=== PATIENT | male | born 1940 | race Caucasian/White ===

== ENCOUNTER → 2017-01-30 | Day surgery (SDC) | payer OTHER ==
[2017-01-30 10:17] VITALS: BMI 27.2
[2017-01-30 10:32] VITALS: BP 130/67; PULSE 80; TEMP 98.1
[2017-01-30 10:38] LABS: INR 1.38 (0.82-1.09); PROTHROMBIN TIME (PATIENT) 15.3 SEC (9.98-11.88)
== END | disposition home or self-care (01) ==
LOC: JASU-ENDO 09:32
PROVIDERS: ATTEND Internal Medicine Gastroenterology
PROC: 0FJB8ZZ Inspection of Hepatobiliary Duct, Via Natural or Artificial Opening Endoscopic (ICD-10-PCS; principal; 2017-01-30)
DX: Z53.8 Procedure and treatment not carried out for other reasons (principal)
CPT/HCPCS: 36415; 85610

== ENCOUNTER 2017-02-13 08:33 | Day surgery (SDC) | payer OTHER ==
[2017-02-12 13:20] VITALS: BMI 27.2
[2017-02-13] MEDS ORDERED: INDOMETHACIN 50 MG RECTAL SUPPOSITORY PR ONE ×2 (09:41→09:43)
[2017-02-13] MEDS ORDERED: IOHEXOL 300 MG/ML INFUS..BTL IV ONE (09:43)
[2017-02-13 10:26] VITALS: TEMP 98.7
[2017-02-13 15:19] VITALS: BP 110/60; PULSE 63
== END 2017-02-13 15:19 | disposition home or self-care (01) ==
LOC: JASU-ENDO 08:33
PROVIDERS: ATTEND Internal Medicine Gastroenterology
PROC: 0F798ZZ Dilation of Common Bile Duct, Via Natural or Artificial Opening Endoscopic (ICD-10-PCS; 2017-02-13)
PROC: 0FC98ZZ Extirpation of Matter from Common Bile Duct, Via Natural or Artificial Opening Endoscopic (ICD-10-PCS; principal; 2017-02-13 09:30)
DX: K80.50 Calculus of bile duct without cholangitis or cholecystitis without obstruction (principal)
CPT/HCPCS: 36415; 74330-TC; 82150

== ENCOUNTER 2017-03-16 05:09 | Inpatient (IN) | payer OTHER ==
--- NOTE | 2017-03-16 09:15 | HP ---
History & Physical Update - History History: No Change - Physical Physical: No Change - Assessment Assessment: No Change - Plan Plan: No Change
[2017-03-16 09:19] LABS: INR 0.96 (0.82-1.09); PROTHROMBIN TIME (PATIENT) 10.9 SEC (9.98-11.88)
[2017-03-16] MEDS ORDERED: ROCURONIUM BROMIDE 50 MG/5 ML VIAL ONE (09:23)
[2017-03-16] MEDS ORDERED: PROPOFOL 20 ML ONE (09:23)
[2017-03-16] MEDS ORDERED: MIDAZOLAM HCL 2 MG/2 ML SINGLE DOSE VIAL ONE (09:23)
[2017-03-16] MEDS ORDERED: LIDOCAINE HCL/PF 2% SDV 5ML VIAL ONE (09:35)
[2017-03-16] MEDS ORDERED: DEXAMETHASONE SOD PHOSPHATE 4 MG/1 ML VIAL ONE (09:45)
[2017-03-16] MEDS ORDERED: ONDANSETRON 4 MG/2 ML VIAL ONE (09:45)
[2017-03-16] MEDS ORDERED: BUPIVACAINE HCL/PF 0.5% (5MG/ML) 10 ML VIAL ONE (09:48)
[2017-03-16] MEDS ORDERED: ceFAZolin SODIUM 1 GM VIAL IVPB ONE (09:57)
[2017-03-16] MEDS ORDERED: GLYCOPYRROLATE 0.2 MG/1 ML VIAL ONE ×2 (10:09→10:20)
[2017-03-16] MEDS ORDERED: ceFAZolin SODIUM 1 GM VIAL ONE (10:09)
[2017-03-16] MEDS ORDERED: DESFLURANE GAS 240 ML BOTTLE IH ONE (10:11)
[2017-03-16] MEDS ORDERED: BUPIVACAINE HCL/PF 0.5% (5MG/ML) 10 ML VIAL IJ ONE (10:20)
[2017-03-16] MEDS ORDERED: METOPROLOL TARTRATE 5 MG/5 ML VIAL ONE (10:29)
[2017-03-16] MEDS: LABETALOL HCL 5 MG/1 ML (100MG/20 ML VIAL) IVPUSH ONE ×2 (10:35→17:01)
[2017-03-16] MEDS ORDERED: ONDANSETRON 4 MG/2 ML VIAL IVPUSH PRN (10:39)
[2017-03-16] MEDS ORDERED: PROMETHAZINE HCL 25 MG/1 ML VIAL IVPUSH PRN (10:39)
--- NOTE | 2017-03-16 10:43 | SURG ---
Surgery Production Line Note Production Line: Tootie Roblero PA-C Date of Service: 03/16/17 Diagnosis: cholelithiasis Procedure: Laprascope- procedure aborted I was present for the entirety of the operative procedure. For further detail, please refer to operative report. Visit type - Case Type Case Type: Scheduled Admission - Emergency Emergency Visit: No - New patient This patient is new to me today: Yes Date on this admission: 03/16/17
--- NOTE | 2017-03-16 11:14 | OP ---
Operative Note - Note: Operative Date: 03/16/17 Pre-Operative Diagnosis: Cholelithiasis, s/p ERCP extraction of CBD stone, atrial fibrillation . Operation: Laparoscopy , diagnostic. Findings: Stiff liver , extensive adhesions of gallbladder covering all the way to the fundus, with omental and peritoneal adhesions. During mobilisation of the fundus, the anesthesiologist noted the patient to be bradycardic to heart rate of 28, to 32, with a blood pressure of 85. Patient remained with bradycardia for a while and the procedure was aborted and wounds closed. Post-Operative Diagnosis: Other (Bradycardia, hypotension , stiff liver , gallvbladder with omental and peritoneal adhesions.) Surgeon: Hanna Del Real Crime Prevention Worker: Tootie Roblero Anesthesiologist/STRUCTURAL WELDER: Bret Acevedo Anesthesia: General Operative Report Dictated: Yes
--- NOTE | 2017-03-16 11:19 | HP ---
CHIEF COMPLAINT: bracycardic during surgery PCP: Dr. Alejo HISTORY OF PRESENT ILLNESS: This is a 77 year old male with a past medical history of atrial fibrillation on coumadin, hepatitis C, untreated, that was here for laproscopic cholecystectomy status post ESRP with choledolithiasis. Pre procedure BP 141/89 ; HR 62. after intubation patient BP systolic rised to 150s, he was then given labetolol 5mg IVP. After his HR dropped to 28. The procedure was aborted and he was extubated. In the recovery room BP rised again to systolic in 180s, he was given labetolol 10mg IVP. BP stabilized; HR 60s. Patient denies chest pain, dyspnea, n,v, diaphoresis, leg swelling Patient denies pre op fever, chills, n, v, changes in bowel or bladder. Recent Travel: no PAST MEDICAL HISTORY: Hepatitis C, atrial fibrillation, hypertension PAST SURGICAL HISTORY: Social History: Smoking:no Alcohol:no Drugs: no Family History: Allergies No Known Drug Allergies Allergy (Verified 03/16/17 08:28) HOME MEDICATIONS: Home Medications Medication Instructions Recorded Metoprolol Tartrate [Lopressor] 50 mg PO DAILY 08/28/12 Aspirin [Ecotrin] 81 mg PO DAILY 01/30/17 Metformin HCl 500 mg PO BID 01/30/17 Warfarin Na [Coumadin] 7.5 mg PO DAILY 01/30/17 Losartan Potassium [Cozaar] 100 mg PO DAILY 02/12/17 Albuterol Sulfate Inhaler - 1 - 2 inh PO QID PRN 03/08/17 [Ventolin Hfa Inhaler -] Albuterol Sulfate [Proair 90 mcg IH DAILY PRN 03/08/17 Respiclick] REVIEW OF SYSTEMS CONSTITUTIONAL: Absent: fever, chills, diaphoresis, generalized weakness, malaise, loss of appetite, weight change HEENT: Absent: rhinorrhea, nasal congestion, throat pain, throat swelling, difficulty swallowing, mouth swelling, ear pain, eye pain, visual changes CARDIOVASCULAR: Absent: chest pain, syncope, palpitations, irregular heart rate, lightheadedness , peripheral edema RESPIRATORY: Absent: cough, shortness of breath, dyspnea with exertion, orthopnea, wheezing, stridor, hemoptysis GASTROINTESTINAL: Absent: abdominal pain, abdominal distension, nausea, vomiting, diarrhea, constipation, melena, hematochezia GENITOURINARY: Absent: dysuria, frequency, urgency, hesitancy, hematuria, flank pain, genital pain MUSCULOSKELETAL: Absent: myalgia, arthralgia, joint swelling, back pain, neck pain SKIN: Absent: rash, itching, pallor HEMATOLOGIC/IMMUNOLOGIC: Absent: easy bleeding, easy bruising, lymphadenopathy, frequent infections ENDOCRINE: Absent: unexplained weight gain, unexplained weight loss, heat intolerance, cold intolerance NEUROLOGIC: Absent: headache, focal weakness or paresthesias, dizziness, unsteady gait, seizure, mental status changes, bladder or bowel incontinence PSYCHIATRIC: Absent: anxiety, depression, suicidal or homicidal ideation, hallucinations. PHYSICAL EXAMINATION Vital Signs - 24 hr 03/16/17 08:22 Temperature 97.4 F L Pulse Rate 62 Respiratory 20 Rate Blood Pressure 141/89 O2 Sat by Pulse 100 Oximetry (%) GENERAL: Awake, alert, and fully oriented, in no acute distress, seen in PACU HEAD: Normal with no signs of trauma. EYES: Pupils equal, round and reactive to light, extraocular movements intact, sclera anicteric, conjunctiva clear. No lid lag. EARS, NOSE, THROAT: Ears normal, nares patent, oropharynx clear without exudates. Moist mucous membranes. NECK: Normal range of motion, supple without lymphadenopathy, JVD, or masses. LUNGS: Breath sounds equal, clear to auscultation bilaterally. No wheezes, and no crackles. No accessory muscle use. HEART: Regular rate and rhythm, normal S1 and S2 without murmur, rub or gallop. ABDOMEN: Soft, nontender, not distended, normoactive bowel sounds, no guarding, no rebound, no masses. No hepatomegaly or splenomegaly. with areas of trocar placed; clean dry intact , no erythema, swelling MUSCULOSKELETAL: Normal range of motion at all joints. No bony deformities or tenderness. No CVA tenderness. UPPER EXTREMITIES: 2+ pulses, warm, well-perfused. No cyanosis. No clubbing. No peripheral edema. LOWER EXTREMITIES: 2+ pulses, warm, well-perfused. No calf tenderness. No peripheral edema. NEUROLOGICAL: Cranial nerves II-XII intact. Normal speech. Normal gait. PSYCHIATRIC: Cooperative. Good eye contact. Appropriate mood and affect. SKIN: Warm, dry, normal turgor, no rashes or lesions noted, normal capillary refill. Laboratory Results - last 24 hr 03/16/17 03/16/17 08:05 08:13 PT with INR 10.90 INR 0.96 D POC Glucometer 105 Current Medications Generic Name Dose Route Start Last Admin Trade Name Molina PRN Reason Stop Dose Admin Fentanyl 50 mcg 03/16/17 10:39 Sublimaze Injection - IVPUSH 03/19/17 10:40 [id number] PRN PAIN Lactated Ringer's 1,000 mls @ 125 mls/hr 03/16/17 10:45 Lactated Ringers Solution IV ASDIR VALERIANO Ondansetron HCl 4 mg 03/16/17 10:39 Zofran Injection IVPUSH 03/16/17 16:40 Q6H PRN NAUSEA AND/OR VOMITING Promethazine HCl 12.5 mg 03/16/17 10:39 Phenergan Injection - IVPUSH 03/16/17 16:40 Q6H PRN NAUSEA-FOR RESCUE AFTER 15 MIN ASSESSMENT/PLAN: This is a 77 year old male with a past medical history of hypertension, atrial fibrillation, hepatitis C, liver cirrohsis, while getting lap mark, patient became severly bradycardic. #bradycardia secondary to labetalol -inpatient monitor in telemetry -currently normotensive; rate controlled -f/u labs -f/u cardiac profile -cardiac consult -hold bp meds if HR>90 and systolic BP <90 FEN: lactated ringer cardiac diet VTE prophylaxis: sq case discussed with attending full Hand P to follow
[2017-03-16 11:36] LABS: BASOPHIL 1.3 % (0-2.0); MCH 30.8 pg (25.7-33.7); MCHC 32.5 g/dl (32.0-35.9); MEAN CELL VOLUME 94.7 fl (80-96); NEUTROPHILS 72.9 % (42.8-82.8); PLATELET COUNT 139 K/MM3 (134-434); RDW 14.3 % (11.9-15.9); WHITE BLOOD COUNT 5.5 K/mm3 (4.0-10.0)
[2017-03-16 11:44] LABS: TROPONIN I 0.02 ng/ml (0.00-0.05)
--- NOTE | 2017-03-16 12:34 | OP ---
DATE OF OPERATION: 03/16/2017 PREOPERATIVE DIAGNOSIS: Cholelithiasis, choledocholithiasis, status post endoscopic retrograde cholangiopancreatography extraction of common bile duct stone, hepatitis C, and atrial fibrillation. POSTOPERATIVE DIAGNOSIS: Cholelithiasis, choledocholithiasis, status post endoscopic retrograde cholangiopancreatography extraction of common bile duct stone, hepatitis C, and atrial fibrillation, with bradycardia and hypertension intraoperatively. SURGEON: Yariel Del Real MD STOCK BUYER: CAMI Johns ANESTHESIA: General anesthesia. ANESTHESIOLOGIST: Bret Acevedo MD OPERATIVE DESCRIPTION: This 77-year-old man, who has a history of atrial fibrillation, diabetic, and hypertension, and has been on Coumadin, metoprolol, aspirin, metformin, and Cozaar, was brought in electively for laparoscopic cholecystectomy. Consent was obtained. Risks, benefits, and complications were discussed with the patient. Patient was brought to the operating room. General anesthesia was administered. The abdomen was painted and draped. He was given a gram of Ancef. An incision was made in the infraumbilical portion of the umbilicus, which was carried down through the skin and subcutaneous tissue and the linea alba vertically in the midline. The peritoneum was incised, and the 10-12-cm laparoscopic trocar of the Darren type was introduced into the abdominal cavity. The abdomen was inflated with carbon dioxide at 6 L per minute with a maximum intraabdominal pressure of 15 mmHg. A 5-mm laparoscopic trocar was inserted into the abdominal cavity, and the abdominal cavity was inspected. Under direct vision, two 5-mm trocars were inserted in the right upper quadrant of the abdomen, one along the midclavicular line, another around the anterior axillary line. These were noted entering the abdominal cavity under direct vision with the camera. A third trocar, another 5-mm, was inserted in the midline of the subxiphoid area. This was noted entering the abdominal cavity to the right of the falciform ligament. The gallbladder was completely covered with omentum and peritoneal adhesions. With sharp and blunt dissection, rylie attempt was made, to visualize the fundus of the gallbladder. While mobilizing, the liver was found to be very stiff, and firm, suggestive of probable cirrhosis of the liver. Carefully, the peritoneal adhesions around the tip of the gallbladder at the fundus were freed, and attempt was made to grasp the fundus with the grasper. During this procedure, patient became hypotensive, with blood pressure of 80 systolic,and bradycardic, and anesthesiologist suggested, that we stop the procedure. Theprocedure was aborted. The abdomen was deflated. However, the patient remained bradycardic and hypotensive, and it was decided to close the abdominal wounds and not continue with the planned procedure. The linear alba was approximated with interrupted [id number] 2-0 Vicryl sutures. The skin was approximated with buried interrupted 4-0 Monocryl sutures. Sponge count and instrument count were correct. Dermabond was applied to close the skin edges. Patient was extubated and sent to the recovery room, where further monitoring would be continued. Once the patient was awake, in the recovery room, he was informed of the events. Candelaria [id number] MTDD
[2017-03-16 12:42] LABS: ALBUMIN 3.3 g/dl (3.4-5.0); ANION GAP 9 (8-16); BILIRUBIN,TOTAL 0.6 mg/dL (0.2-1.0); CALCIUM 8.4 mg/dL (8.5-10.1); CO2 25 mmol/L (21-32); CREATININE 0.8 mg/dL (0.7-1.3); GLUCOSE,RANDOM 125 mg/dL (74-106); MAGNESIUM 1.9 mg/dL (1.8-2.4); PHOSPHOROUS 3.6 mg/dL (2.5-4.9); SGOT/AST 50 U/L (15-37); SGPT/ALT 42 U/L (12-78); TOT PROT 6.1 g/dl (6.4-8.2)
[2017-03-16 12:43] LABS: ALK PHOS 90 U/L (45-117)
--- NOTE | 2017-03-16 13:01 | CONSULT ---
Consult Consult Specialty:: PULM/CCM Referred by:: LOVE Reason for Consultation:: Bradycardia - History of Present Illness Chief Complaint: Abdominal pain History of Present Illness: 77 M, atrial fibrillation on coumadin, hepatitis C (untreated). Admitted for laproscopic cholecystectomy status post ESRP with choledolithiasis. VSS stable prior to OR. Due to HTN he received labetolol 5mg IVP x1 and was noted to have bradycardia to the 30's and transient hypotension. The case was terminated and the patient was transferred safely back to the PACU. Patient is currently awake and alert. He does not have CP or SOB. EKG : AFib with no indication of ischemic changes. He does report some mild abdominal discomfort that present before admission. - History Source History Provided By: Patient Limitations to Obtaining History: No Limitations - Alcohol/Substance Use Hx Alcohol Use: No - Smoking History Smoking history: Former smoker Have you smoked in the past 12 months: No If you are a former smoker, when did you quit?: 1991 Home Medications - Allergies Allergies/Adverse Reactions: Allergies Allergy/AdvReac Type Severity Reaction Status Date / Time No Known Drug Allergies Allergy Verified 03/16/17 08:28 - Home Medications Home Medications: Ambulatory Orders Metoprolol Tartrate [Lopressor] 50 mg PO DAILY 08/28/12 Aspirin [Ecotrin] 81 mg PO DAILY 01/30/17 Metformin HCl 500 mg PO BID 01/30/17 Warfarin Na [Coumadin] 7.5 mg PO DAILY 01/30/17 Losartan Potassium [Cozaar] 100 mg PO DAILY 02/12/17 Albuterol Sulfate Inhaler - [Ventolin Hfa Inhaler -] 1 - 2 inh PO QID PRN Albuterol Sulfate [Proair Respiclick] 90 mcg IH DAILY PRN 03/08/17 Review of Systems - Review of Systems Constitutional: reports: No Symptoms Eyes: reports: No Symptoms HENT: reports: No Symptoms Neck: reports: No Symptoms Cardiovascular: reports: No Symptoms Respiratory: reports: No Symptoms Gastrointestinal: reports: Abdominal Pain, Bloating. denies: Rectal Bleeding, Vomiting, Vomiting Blood Genitourinary: reports: No Symptoms Breasts: reports: No Symptoms Reported Musculoskeletal: reports: No Symptoms Integumentary: reports: No Symptoms Neurological: reports: No Symptoms Endocrine: reports: No Symptoms Hematology/Lymphatic: reports: No Symptoms Psychiatric: reports: No Symptoms Physical Exam Vital Signs: Vital Signs Temperature 97.9 F 03/16/17 10:32 Pulse Rate 54 L 03/16/17 12:00 Respiratory Rate 13 03/16/17 12:00 Blood Pressure 119/80 03/16/17 12:00 O2 Sat by Pulse Oximetry (%) 100 03/16/17 12:00 Constitutional: Yes: No Distress, Calm Eyes: Yes: Conjunctiva Clear, EOM Intact HENT: Yes: Atraumatic, Normocephalic Neck: Yes: Supple, Trachea Midline Cardiovascular: Yes: Pulse Irregular Respiratory: Yes: Regular, CTA Bilaterally, On Nasal O2. No: Accessory Muscle Use Gastrointestinal: Yes: Normal Bowel Sounds, Soft, Abdomen, Obese, Tenderness. No: Palpable Mass, Pulsatile Mass ...Rectal Exam: Yes: Deferred Renal/: Yes: WNL Breast(s): Yes: WNL Musculoskeletal: Yes: WNL Extremities: Yes: WNL Edema: No Peripheral Pulses WNL: Yes Integumentary: Yes: WNL Neurological: Yes: WNL, Alert, Oriented ...Motor Strength: WNL Psychiatric: Yes: WNL, Alert, Oriented Labs: CBC, BMP 03/16/17 11:27 03/16/17 11:27 Problem List - Problems (1) A-fib Code(s): I48.91 - UNSPECIFIED ATRIAL FIBRILLATION (2) Bradycardia Code(s): R00.1 - BRADYCARDIA, UNSPECIFIED (3) Choledocholithiasis Code(s): K80.50 - CALCULUS OF BILE DUCT W/O CHOLANGITIS OR CHOLECYST W/O OBST Assessment/Plan Transient Bradycardia and hypotension due to Labetalol Patient is awake and alert in the PACU. Rate controlled AFib and hemodynamics are stable. Observation Telemetry monitoring. Thank you. Dr Hurst
--- NOTE | 2017-03-16 13:17 | HP ---
CHIEF COMPLAINT: bradycardia PCP: Dr. Alejo HISTORY OF PRESENT ILLNESS: This is a 77 year old male with a past medical history of atrial fibrillation on coumadin, hepatitis C, untreated, that was here for laproscopic cholecystectomy status post ESRP with choledolithiasis. Pre procedure BP 141/89 ; HR 62. after intubation patient BP systolic rised to 150s, he was then given labetolol 5mg IVP. After his HR dropped to 28. The procedure was aborted and he was extubated. In the recovery room BP rised again to systolic in 180s, he was given labetolol 10mg IVP. BP stabilized; HR 60s. Patient denies chest pain, dyspnea, n,v, diaphoresis, leg swelling Patient denies pre op fever, chills, n, v, changes in bowel or bladder. Recent Travel: no PAST MEDICAL HISTORY: hepatitis C, atrial fibrillation PAST SURGICAL HISTORY: Social History: Smoking:no Alcohol:quit Drugs: no Family History: Allergies No Known Drug Allergies Allergy (Verified 03/16/17 08:28) HOME MEDICATIONS: Home Medications Medication Instructions Recorded Metoprolol Tartrate [Lopressor] 50 mg PO DAILY 08/28/12 Aspirin [Ecotrin] 81 mg PO DAILY 01/30/17 Metformin HCl 500 mg PO BID 01/30/17 Warfarin Na [Coumadin] 7.5 mg PO DAILY 01/30/17 Losartan Potassium [Cozaar] 100 mg PO DAILY 02/12/17 Albuterol Sulfate Inhaler - 1 - 2 inh PO QID PRN 03/08/17 [Ventolin Hfa Inhaler -] Albuterol Sulfate [Proair 90 mcg IH DAILY PRN 03/08/17 Respiclick] REVIEW OF SYSTEMS CONSTITUTIONAL: Absent: fever, chills, diaphoresis, generalized weakness, malaise, loss of appetite, weight change HEENT: Absent: rhinorrhea, nasal congestion, throat pain, throat swelling, difficulty swallowing, mouth swelling, ear pain, eye pain, visual changes CARDIOVASCULAR: Absent: chest pain, syncope, palpitations, irregular heart rate, lightheadedness , peripheral edema RESPIRATORY: Absent: cough, shortness of breath, dyspnea with exertion, orthopnea, wheezing, stridor, hemoptysis GASTROINTESTINAL: Absent: abdominal pain, abdominal distension, nausea, vomiting, diarrhea, constipation, melena, hematochezia GENITOURINARY: Absent: dysuria, frequency, urgency, hesitancy, hematuria, flank pain, genital pain MUSCULOSKELETAL: Absent: myalgia, arthralgia, joint swelling, back pain, neck pain SKIN: Absent: rash, itching, pallor HEMATOLOGIC/IMMUNOLOGIC: Absent: easy bleeding, easy bruising, lymphadenopathy, frequent infections ENDOCRINE: Absent: unexplained weight gain, unexplained weight loss, heat intolerance, cold intolerance NEUROLOGIC: Absent: headache, focal weakness or paresthesias, dizziness, unsteady gait, seizure, mental status changes, bladder or bowel incontinence PSYCHIATRIC: Absent: anxiety, depression, suicidal or homicidal ideation, hallucinations. PHYSICAL EXAMINATION Vital Signs - 24 hr 03/16/17 03/16/17 03/16/17 08:22 10:32 10:45 Temperature 97.4 F L 97.9 F Pulse Rate 62 60 60 Respiratory 20 20 20 Rate Blood Pressure 141/89 181/110 137/96 O2 Sat by Pulse 100 100 100 Oximetry (%) 03/16/17 03/16/17 03/16/17 11:00 11:15 11:30 Temperature Pulse Rate 55 L 60 55 L Respiratory 15 21 16 Rate Blood Pressure 131/81 120/83 116/76 O2 Sat by Pulse 100 100 100 Oximetry (%) 03/16/17 03/16/17 11:45 12:00 Temperature Pulse Rate 67 54 L Respiratory 11 L 13 Rate Blood Pressure 116/74 119/80 O2 Sat by Pulse 100 100 Oximetry (%) GENERAL: Awake, alert, and fully oriented, in no acute distress. HEAD: Normal with no signs of trauma. EYES: Pupils equal, round and reactive to light, extraocular movements intact, sclera anicteric, conjunctiva clear. No lid lag. EARS, NOSE, THROAT: Ears normal, nares patent, oropharynx clear without exudates. Moist mucous membranes. NECK: Normal range of motion, supple without lymphadenopathy, JVD, or masses. LUNGS: Breath sounds equal, clear to auscultation bilaterally. No wheezes, and no crackles. No accessory muscle use. HEART: Regular rate and rhythm, normal S1 and S2 without murmur, rub or gallop. ABDOMEN: Soft, nontender, not distended, normoactive bowel sounds, no guarding, no rebound, no masses. No hepatomegaly or splenomegaly. Three areas where trocars were placed; cloed, no surrounding swelling, erythema MUSCULOSKELETAL: Normal range of motion at all joints. No bony deformities or tenderness. No CVA tenderness. UPPER EXTREMITIES: 2+ pulses, warm, well-perfused. No cyanosis. No clubbing. No peripheral edema. LOWER EXTREMITIES: 2+ pulses, warm, well-perfused. No calf tenderness. No peripheral edema. NEUROLOGICAL: Cranial nerves II-XII intact. Normal speech. Normal gait. PSYCHIATRIC: Cooperative. Good eye contact. Appropriate mood and affect. SKIN: Warm, dry, normal turgor, no rashes or lesions noted, normal capillary refill. Laboratory Results - last 24 hr 03/16/17 03/16/17 03/16/17 08:05 08:13 11:07 WBC RBC Hgb Hct MCV MCH MCHC RDW Plt Count MPV Neutrophils % Lymphocytes % Monocytes % Eosinophils % Basophils % PT with INR 10.90 INR 0.96 D Sodium Potassium Chloride Carbon Dioxide Anion Gap BUN Creatinine Creat Clearance w eGFR POC Glucometer 105 Random Glucose Lactic Acid Calcium Phosphorus Magnesium Total Bilirubin AST ALT Alkaline Phosphatase Creatine Kinase 220 Creatine Kinase Index 4.1 CK-MB (CK-2) 9.025 H Troponin I 0.02 Total Protein Albumin 03/16/17 03/16/17 03/16/17 11:27 11:27 11:27 WBC 5.5 RBC 4.52 Hgb 13.9 D Hct 42.8 MCV 94.7 MCH 30.8 MCHC 32.5 RDW 14.3 Plt Count 139 MPV 10.0 Neutrophils % 72.9 Lymphocytes % 17.0 Monocytes % 6.8 Eosinophils % 2.0 Basophils % 1.3 PT with INR INR Sodium 140 Potassium 4.3 Chloride 106 Carbon Dioxide 25 Anion Gap 9 BUN 27 H D Creatinine 0.8 Creat Clearance w eGFR > 60 POC Glucometer Random Glucose 125 H D Lactic Acid 1.6 Calcium 8.4 L Phosphorus 3.6 Magnesium 1.9 Total Bilirubin 0.6 AST 50 H D ALT 42 Alkaline Phosphatase 90 D Creatine Kinase Creatine Kinase Index CK-MB (CK-2) Troponin I Total Protein 6.1 L Albumin 3.3 L ASSESSMENT/PLAN: This is a 77 year old male with a past medical history of hypertension, atrial fibrillation, hepatitis C, liver cirrohsis, while getting lap mark, patient became severly bradycardic. #bradycardia secondary to labetalol -inpatient monitor in telemetry -currently normotensive; rate controlled -f/u labs -f/u cardiac profile -cont coumadin ; check INR -hold bp meds if HR<60 and systolic BP <90 -cardiac consult #DM type II -hold metformin -Insulin SS -bgm; #hypertension: cont home meds with parameters FEN: lactated ringer electrolytes wnl cardiac diet VTE prophylaxis: on coumadin Disposition: case discussed with attending case discussed with attending Problem List - Problem (1) A-fib Code(s): I48.91 - UNSPECIFIED ATRIAL FIBRILLATION (2) Bradycardia Code(s): R00.1 - BRADYCARDIA, UNSPECIFIED (3) Choledocholithiasis Code(s): K80.50 - CALCULUS OF BILE DUCT W/O CHOLANGITIS OR CHOLECYST W/O OBST Visit type - Emergency Visit Emergency Visit: No - New Patient This patient is new to me today: Yes Date on this admission: 03/16/17 - Critical Care Critical Care patient: No
[2017-03-16] MEDS ORDERED: ALBUTEROL SO4 18 GM HFA INHALER IH PRN (13:19)
[2017-03-16] MEDS ORDERED: PATIENT'S OWN MEDICATION (NON-FORMULARY) (Albuterol Sulfate [Proair Respiclick] 90 MCG) IH PRN (13:19)
--- NOTE | 2017-03-16 15:44 | PN ---
Teaching Attending Note Name of Resident: Carmenza Villanueva ATTENDING PHYSICIAN STATEMENT I saw and evaluated the patient. I reviewed the resident's note and discussed the case with the resident. I agree with the resident's findings and plan as documented. 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 During the procedure pt developed HTN (151/70) HR 62 and was given labetolol IVP which HR dropped to 28. procedure was aborted. As per pt he took his morning labs (including lopressor 50mg) except for metformin and coumadin which he has been holding for the past week in anticipation of surgery. currently pt is asymptomatic except abdominal discomfort. denies Cp, SOB, fever, chills, palpitations, N/V/C/D. states he had 12 hour long surgery in the past (laminectomy?) and no complications during the surgery at that time. OBJECTIVE: Last Vital Signs Temp Pulse Resp BP Pulse Ox 98.6 F 60 18 140/80 100 03/16/17 15:50 03/16/17 15:50 03/16/17 15:50 03/16/17 15:50 03/16/17 15:30 General NAD CV S1 S2 + no murmur/rub/gallop Lungs CTA anteriorly no wheezing/rales/rhonchi Abdomen mildly distended. diffuse tenderness 4 surgical incisions with dried blood no oozing. 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 Severe Bradycardia- Tele admission. likely due to beta blockade. HR now 66. asymptomatic. will place on continuous cardiac monitoring you monitor for repeat episodes of bradycardia. trend cardiac enzymes Q6H. will re-start metoprolol dose tomorrow if HR remains stable. cardio consulted. 2. Afib on coumadin- coumadin been on hold for a week and pt is instructed to have surgery re-scheduled next week and to continue to hold coumadin. pt is aware at increased risk of stroke while off medication. was on Xarelto in the past and had epistaxis (did not receive blood transfusion) which it was stopped and placed on coumadin instead for the past year. d/w pt trying a different NOAC at least just temporarily while going for surgery to protect. and pt refused. verbalized understands risks. does not want to re-start coumadin at this time either 3. DM- diabetic diet. hold metformin. iss, bgm 4. 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 DVT ppx-EAM
[2017-03-16 16:37] VITALS: BMI 29.0
[2017-03-16] MEDS ORDERED: FLU VACCINE QUAD 60 MCG/0.5 ML (MDV 17-18) IM ONE (16:57)
[2017-03-16] MEDS: LACTATED RINGERS SOLUTION 1,000 ML IV SCH (17:01)
[2017-03-16] MEDS: INSULIN SLIDING SCALE (NOVOLOG) 1 VIAL SQ SCH ×2 (17:01→21:13)
[2017-03-16] MEDS ORDERED: morphine CARPU-JECT 2 MG/1 ML DISP.SYRIN IVPUSH ONE (20:02)
[2017-03-17] MEDS: INSULIN SLIDING SCALE (NOVOLOG) 1 VIAL SQ SCH ×2 (07:37→12:21)
[2017-03-17 07:45] LABS: BASOPHIL 0.6 % (0-2.0); EOSINOPHIL 0.6 % (0-4.5); MCHC 32.9 g/dl (32.0-35.9); MEAN PLT VOLUME 10.2 fl (7.5-11.1); PLATELET COUNT 150 K/MM3 (134-434); RDW 14.1 % (11.9-15.9); WHITE BLOOD COUNT 8.5 K/mm3 (4.0-10.0)
[2017-03-17 07:53] LABS: INR 1.09 (0.82-1.09); PROTHROMBIN TIME (PATIENT) 12.3 SEC (9.98-11.88)
--- NOTE | 2017-03-17 09:43 | PN ---
Progress Note (short form) - Note Progress Note: Chief Complaint: Events noted, notes reviewed, denies any chest pain or dyspnea , denies any history of near syncope or syncope History of Present Illness: Events noted, notes reviewed, full consult dictated Medications: Current Medications Albuterol Sulfate (Ventolin Hfa Inhaler -) 1 - 2 puff IH QID PRN PRN Reason: ASTHMA Aspirin (Ecotrin -) 81 mg PO DAILY VALERIANO Fentanyl (Sublimaze Injection -) 50 mcg IVPUSH [id number] PRN PRN Reason: PAIN Stop: 03/19/17 10:40 Last Admin: 03/16/17 11:40 Dose: 50 mcg Lactated Ringer's (Lactated Ringers Solution) 1,000 mls @ 125 mls/hr IV ASDIR VALERIANO Last Admin: 03/16/17 17:01 Dose: Not Given Insulin Aspart (Novolog Vial Sliding Scale -) 1 vial SQ ACHS VALERIANO PRN Reason: Protocol Last Admin: 03/17/17 07:37 Dose: Not Given Losartan Potassium (Cozaar -) 100 mg PO DAILY [facility] Metoprolol Tartrate (Lopressor -) 50 mg PO DAILY [facility] Review of Systems Constitutional: denies: Chills, Fever Cardiovascular: As Noted Above Respiratory: denies: Cough or Sputum Production Gastrointestinal: denies: Abdominal Pain, Constipation, Diarrhea, Nausea, Vomiting Genitourinary: denies: Dysuria Musculoskeletal: No Symptoms Reported Neurological: denies: Dizziness, Headache Vital Signs: Last Vital Signs Temp Pulse Resp BP Pulse Ox 97.5 F L 79 18 123/58 98 03/17/17 06:00 03/17/17 06:00 03/17/17 06:00 03/17/17 06:00 03/16/17 21:00 Intake & Output 03/14/17 03/15/17 03/16/17 03/17/17 23:59 23:59 23:59 23:59 Intake Total 1160 130 Output Total 5 Balance 1155 130 Weight 169 lb Constitutional: No Distress, Calm Neck: Supple Negative JVD No Bruit Respiratory: Clear to A&P Bilaterally Cardiovascular: S1 S2 Irregularly Irregular No Murmurs Gastrointestinal: Soft Benign Normal Bowel Sounds Ext: No Edema Labs: Troponin, BNP 03/16/17 11:07 Troponin I 0.02 CBC, BMP 03/17/17 05:35 03/16/17 11:27 Hepatic Panel Total Bilirubin 0.6 mg/dL (0.2-1.0) 03/16/17 11:27 AST 50 U/L (15-37) H D 03/16/17 11:27 ALT 42 U/L (12-78) 03/16/17 11:27 Alkaline Phosphatase 90 U/L (45-117) D 03/16/17 11:27 Albumin 3.3 g/dl (3.4-5.0) L 03/16/17 11:27 INR, PTT INR 1.09 (0.82-1.09) 03/17/17 05:35 Assessment/Plan ASSESSMENT: 1. Transient bradycardia and hypotension post Labetalol administration intra- operatively for management of HTN 2. Persistent atrial fibrillation with periods of slow ventricular response [id number] score of 5, no clinical syncope and pauses are < 5.0 seconds 3. CAD angina pectoris, stable 4. Diastolic LV dysfunction with class 0 NYHA classification LV failure 5. HTN 6. NIDDM 7. Cholelithiasis, post ERCP and stone extraction post aborted laparoscopic cholecystectomy 8. History of hepatitis C PLAN: 1. Continue Lopressor but change to 25 mg twice daily administration 2. Continue Cozaar 3. Resume A/C with Coumadin and maintain INR between 2-3, ASA can be D/C stable CAD with no recent intervention 4. Patient should have additional outpatient cardiovascular evaluation prior to proceeding with repeat procedure including Holter monitor or extended ambulatory monitor, echocardiography and probable MPI study, can F/U with his supervisor assembly room Dr. Syd Rose at [facility] Thank you Abdelrahman Murray M.D.
[2017-03-17] MEDS ORDERED: METOPROLOL TARTRATE 25 MG TABLET (FP) PO SCH ×3 (10:00→22:00)
[2017-03-17] MEDS ORDERED: LOSARTAN POTASSIUM 50 MG TABLET (FP) PO SCH (10:00)
[2017-03-17] MEDS ORDERED: WARFARIN NA 7.5 MG TABLET (FP) PO SCH ×2 (10:00→18:00)
[2017-03-17] MEDS ORDERED: ASPIRIN COATED 81 MG TABLET.EC PO SCH (10:00)
[2017-03-17] MEDS ORDERED: PATIENT'S OWN MEDICATION (NON-FORMULARY) (Losartan Potassium [Cozaar] 100 MG) PO SCH (10:00)
[2017-03-17 10:15] VITALS: BP 138/80; PULSE 70; TEMP 98
[2017-03-17] MEDS ORDERED: METOPROLOL TARTRATE 25 MG TABLET (FP) PO ONE (10:30)
[2017-03-17] MEDS ORDERED: ACETAMINOPHEN 325 MG TABLET (FP) PO PRN (10:55)
--- NOTE | 2017-03-17 10:59 | CONS ---
DATE OF CONSULTATION: 03/17/2017 REQUESTING PHYSICIAN: Hospitalist. CHIEF COMPLAINT: Evaluation of cardiac arrhythmia, hypotension in a patient with known history of coronary artery disease, angina pectoris, diastolic left ventricular dysfunction. 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 Subsequently, labetalol therapy was administered which was complicated by hypotension and significant bradycardia. In view of which, the above-noted procedure was aborted. Patient subsequently was transferred to the telemetry unit for purpose of observation. Patient was noted to have overnight episodes of atrial fibrillation with slow ventricular response and some pauses, although they measured less than 5 seconds. Upon questioning the patient, he does not report any history of near syncope or syncope. The patient denies any history of fatigue and tiredness. Patient denies any history of chest discomfort. Patient denies any dyspnea, orthopnea, paroxysmal nocturnal dyspnea, or peripheral edema. Patient denies any palpitations. Patient currently is complaining of incisional discomfort at the site of laparoscopy. PAST MEDICAL HISTORY: Coronary artery disease, angina pectoris, diastolic left ventricular dysfunction with class 0 Huntington Heart Association classification left ventricular failure, persistent atrial fibrillation, CHADS-VASc score of 5 on chronic anticoagulation therapy, hypertensive cardiovascular disease, [id number] diabetes mellitus, prostate enlargement post TURP, spinal stenosis post lumbar laminectomy, and history of hepatitis C. SOCIAL HISTORY: Denies smoking. FAMILY HISTORY: Positive coronary artery disease. ALLERGIES: None reported. MEDICAL THERAPY: Currently includes Ventolin HFA, Ecotrin 81 mg once a day, fentanyl injection as needed, insulin as prescribed, Cozaar 100 mg once a day, Lopressor 50 mg once a day. REVIEW OF SYSTEMS: Head and Neck: Denies headache, photophobia, blurring of vision. Respiratory: No cough or sputum production. Cardiovascular: As noted above. Gastrointestinal: Reports incisional discomfort as noted above. Denies nausea, vomiting, diarrhea. Genitourinary: No symptoms reported. Musculoskeletal: No symptoms reported. PHYSICAL EXAMINATION: Vital Signs: Blood pressure 123/58 mmHg, pulse rate is 79 beats per minute. Head and Neck: Pupils equal and reactive to light and accommodation. Extraocular muscles are intact. Anicteric sclerae. Negative JVD. No bruit appreciated. Chest: Clear to auscultation and percussion. Cardiovascular: S1 and S2. Irregularly irregular. No murmurs appreciated. Abdomen: Soft, benign. Normoactive bowel sounds. Extremities: Negative edema. Intact distal pulses. No calf tenderness. DIAGNOSTIC DATA: Electrocardiogram: None in chart. Troponin-I is 0.02. CBC revealed a white cell count of 8.5, hemoglobin 14.2, platelet count 150. Basic metabolic profile revealed sodium 140, potassium 4.3, BUN 27, creatinine 0.8, glucose 125. AST 50, ALT 42. INR 1.09. ASSESSMENT: 1. Transient bradycardia and hypotension post labetalol therapy administration intraoperatively for management of hypertension, iatrogenic. 2. Persistent atrial fibrillation with periods of slow ventricular response. CHADS-VASc score of 5. No clinical syncope and pauses are less than 5 seconds. 3. Coronary artery disease, angina pectoris. 4. Diastolic left ventricular dysfunction with class 0 Huntington Heart Association classification left ventricular failure. 5. Hypertensive cardiovascular disease. 6. [id number] diabetes mellitus. 7. Cholelithiasis post endoscopic retrograde cholangiopancreatography, stone extraction, post aborted laparoscopic cholecystectomy. 8. History of hepatitis C. RECOMMENDATION: 1. Continuation of Lopressor but changing dose to 25 mg twice daily. 2. Continuation of Cozaar. 3. Resumption of anticoagulation therapy with Coumadin, maintaining INR between 2 and 3 and Ecotrin therapy can be discontinued, stable CAD. 4. Patient should have additional outpatient cardiovascular evaluation prior to proceeding with repeat procedure, including Holter monitor or extended ambulatory monitor, echocardiography, and probable myocardial perfusion imaging study. Patient can follow up with his own banking representative at [facility], Dr. Syd Rose. Discussed in detail with the patient. Thank you for the kind referral. HUGO RANDHAWA M.D. CHRISTY/[id number]
[2017-03-17] MEDS ORDERED: ACETAMINOPHEN 325 MG TABLET (FP) PO ONE (11:30)
[2017-03-17] MEDS ORDERED: oxyCODONE HCL 5 MG TABLET PO ONE (11:30)
--- NOTE | 2017-03-17 12:03 | DS ---
Physical Exam: SUBJECTIVE: Patient seen and examined. asymptomatic. denies CP, lightheadedness , blurred vision or palpitations OBJECTIVE: Vital Signs Period Temp Pulse Resp BP Sys/[place] Pulse Ox Last 24 Hr 97.5 F-98.6 F 54-79 12-20 110-165/58-101 98-100 PHYSICAL EXAM GENERAL: The patient is awake, alert, and fully oriented, in no acute distress. HEAD: Normal with no signs of trauma. EYES: PERRL, extraocular movements intact, sclera anicteric, conjunctiva clear. ENT: Ears normal, nares patent, oropharynx clear without exudates, moist mucous membranes. NECK: Trachea midline, full range of motion, supple. LUNGS: Breath sounds equal, clear to auscultation bilaterally, no wheezes, no crackles, no accessory muscle use. HEART: Regular rate and rhythm, S1, S2 without murmur, rub or gallop. ABDOMEN: Soft, nontender, nondistended, normoactive bowel sounds, no guarding, no rebound, no hepatosplenomegaly, no masses. EXTREMITIES: 2+ pulses, warm, well-perfused, no edema. NEUROLOGICAL: Cranial nerves II through XII grossly intact. Normal speech, gait not observed. PSYCH: Normal mood, normal affect. SKIN: Warm, dry, normal turgor, no rashes or lesions noted. LABS Laboratory Results - last 24 hr 03/16/17 03/16/17 03/16/17 11:07 11:27 11:27 WBC RBC Hgb Hct MCV MCH MCHC RDW Plt Count MPV Neutrophils % Lymphocytes % Monocytes % Eosinophils % Basophils % PT with INR INR Sodium 140 Potassium 4.3 Chloride 106 Carbon Dioxide 25 Anion Gap 9 BUN 27 H D Creatinine 0.8 Creat Clearance w eGFR > 60 POC Glucometer Random Glucose 125 H D Lactic Acid 1.6 Calcium 8.4 L Phosphorus 3.6 Magnesium 1.9 Total Bilirubin 0.6 AST 50 H D ALT 42 Alkaline Phosphatase 90 D Creatine Kinase 220 Creatine Kinase Index 4.1 CK-MB (CK-2) 9.025 H Troponin I 0.02 Total Protein 6.1 L Albumin 3.3 L 03/16/17 03/16/17 03/17/17 15:30 20:39 05:29 WBC RBC Hgb Hct MCV MCH MCHC RDW Plt Count MPV Neutrophils % Lymphocytes % Monocytes % Eosinophils % Basophils % PT with INR INR Sodium Potassium Chloride Carbon Dioxide Anion Gap BUN Creatinine Creat Clearance w eGFR POC Glucometer 180 127 100 Random Glucose Lactic Acid Calcium Phosphorus Magnesium Total Bilirubin AST ALT Alkaline Phosphatase Creatine Kinase Creatine Kinase Index CK-MB (CK-2) Troponin I Total Protein Albumin 03/17/17 03/17/17 05:35 05:35 WBC 8.5 D RBC 4.57 Hgb 14.2 Hct 43.0 MCV 94.0 MCH 31.0 MCHC 32.9 RDW 14.1 Plt Count 150 MPV 10.2 Neutrophils % 72.0 Lymphocytes % 18.4 Monocytes % 8.4 Eosinophils % 0.6 Basophils % 0.6 PT with INR 12.30 H INR 1.09 Sodium Potassium Chloride Carbon Dioxide Anion Gap BUN Creatinine Creat Clearance w eGFR POC Glucometer Random Glucose Lactic Acid Calcium Phosphorus Magnesium Total Bilirubin AST ALT Alkaline Phosphatase Creatine Kinase Creatine Kinase Index CK-MB (CK-2) Troponin I Total Protein Albumin HOSPITAL COURSE: Date of Admission:03/16/17 Date of Discharge: 03/17/17 Admitting diagnosis: Severe bradycardia Pre hospital course 77yo M with PMH afib on coumadin, DM, 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 During the procedure pt developed HTN (151/70) HR 62 and was given labetolol IVP which HR dropped to 28. procedure was aborted. As per pt he took his morning labs (including lopressor 50mg) except for metformin and coumadin which he has been holding for the past week in anticipation of surgery. currently pt is asymptomatic except abdominal discomfort. denies Cp, SOB, fever, chills, palpitations, N/V/C/D. states he had 12 hour long surgery in the past (laminectomy?) and no complications during the surgery at that time. Subsequent hospital course [facility] continuous cardiac monitoring. HR mainly stayed stable but dropped as low as 55 at some times. evaluated by cardiology. metoprolol XL switched to lopressor 25mg BID. asa was stopped and coumadin was re-started. d/ c home with medication changes and instruction to f/u with PMD on sunday for INR check. Minutes to complete discharge: 40 Discharge Summary Reason For Visit: CHOLELITHIASIS Current Active Problems A-fib (Acute) Bradycardia (Acute) Choledocholithiasis (Acute) Cirrhosis (Chronic) Diabetes (Chronic) - Instructions Diet, Activity, Other Instructions: You were admitted to the hospital because your heart rate became dangerously low during surgery. You were monitored over night and your heart rate improved. Your medication was adjusted metoprolol was changed from the long acting to short acting and you will need to take this twice a day (lopressor 25mg twice a day). It is recommended to follow up with your patient placement coordinator for further studies prior to going for the surgery again It is recommended for you to resume your coumadin at this time while surgery is on hold. Follow up with your primary care doctor on sunday for INR check You may also stop taking aspirin at this time as it is not necessary. Resume your other medications. Follow a low salt, diabetic diet Follow up with your patient placement coordinator next week. He may recommend further studies to make sure it is safe for you to proceed with surgery Return to the ER if you develop headache, dizzyness, blurred vision or chest pain Referrals: Abdelrahman Murray MD [Staff Physician] - Cory Alejo MD [Staff Physician] - Hanna Del Real MD [Staff Physician] - - Home Medications Comprehensive Discharge Medication List: Ambulatory Orders Metformin HCl 500 mg PO BID 01/30/17 Warfarin Na [Coumadin -] 7.5 mg PO DAILY 01/30/17 Losartan Potassium [Cozaar] 100 mg PO DAILY 02/12/17 Albuterol Sulfate [Proair Respiclick] 90 mcg IH DAILY PRN 03/08/17 Metoprolol Tartrate [Lopressor -] 50 mg PO BID #60 tab 03/17/17 This patient is new to me today: No Emergency Visit: No Critical Care patient: No - Discharge Referral Referred to [facility] Med P.C.: No
[2017-03-17] MEDS: LACTATED RINGERS SOLUTION 1,000 ML IV SCH (12:18)
--- NOTE | 2017-03-17 13:14 | EKG ---
Test Reason : Blood Pressure : / mmHG Vent. Rate : 063 BPM Atrial Rate : 073 BPM P-R Int : 000 ms QRS Dur : 084 ms QT Int : 402 ms P-R-T Axes : 000 039 044 degrees QTc Int : 411 ms ATRIAL FIBRILLATION ABNORMAL ECG WHEN COMPARED WITH ECG OF 08-MAR-2017 10:24, NO SIGNIFICANT CHANGE WAS FOUND Confirmed by HUGO RANDHAWA MD ([id number]) on 03/17/2017 1:13:44 PM Referred By: JLUIS DALE Confirmed By:HUGO RANDHAWA MD
--- NOTE | 2017-03-17 13:28 | PN ---
Progress Note, Physician - Current Medication List Current Medications: Active Medications Acetaminophen (Tylenol -) 650 mg PO Q6H PRN PRN Reason: FEVER OR PAIN Albuterol Sulfate (Ventolin Hfa Inhaler -) 1 - 2 puff IH QID PRN PRN Reason: ASTHMA Fentanyl (Sublimaze Injection -) 50 mcg IVPUSH [id number] PRN PRN Reason: PAIN Stop: 03/19/17 10:40 Last Admin: 03/16/17 11:40 Dose: 50 mcg Lactated Ringer's (Lactated Ringers Solution) 1,000 mls @ 125 mls/hr IV ASDIR [facility] Last Admin: 03/17/17 12:18 Dose: Not Given Insulin Aspart (Novolog Vial Sliding Scale -) 1 vial SQ ACHS [facility] PRN Reason: Protocol Last Admin: 03/17/17 12:21 Dose: Not Given Losartan Potassium (Cozaar -) 100 mg PO DAILY [facility] Last Admin: 03/17/17 10:44 Dose: 100 mg Metoprolol Tartrate (Lopressor -) 25 mg PO BID [facility] Warfarin Sodium (Coumadin -) 7.5 mg PO DAILY@1800 [facility] - Objective Vital Signs: Vital Signs Temperature 98 F 03/17/17 10:00 Pulse Rate 70 03/17/17 10:00 Respiratory Rate 14 03/17/17 10:00 Blood Pressure 138/80 03/17/17 10:00 O2 Sat by Pulse Oximetry (%) 98 03/17/17 09:00 Labs: CBC, BMP 03/17/17 05:35 03/16/17 11:27 INR, PTT INR 1.09 (0.82-1.09) 03/17/17 05:35 Assessment/Plan Surgery: Patient is stable. Cadiology consultation noted. Patient is being discharged and will be rescheduled for cholecystectomy when cleared by cardiology in 3-4 weeks.
--- NOTE | 2017-03-17 18:07 | PN ---
Progress Note (short form) - Note Progress Note: airam Note: Anesthesia post op note. S/P Laparoscopic cholecystectomy under GA. POD#1, VSS. NO post anesthesia complications reported.Signed off.
== END 2017-03-17 13:30 | disposition home or self-care (01) | DRG 982 ==
LOC: JASU-SURG 05:09 → JERBED 11:10 → JSAMEDAYSX 13:14 → J4W 16:24
PROVIDERS: ADMIT Specialist; ATTEND Internal Medicine
PROC: 0DNW4ZZ Release Peritoneum, Percutaneous Endoscopic Approach (ICD-10-PCS; principal; 2017-03-16 09:30)
DX: I97.88 Other intraoperative complications of the circulatory system, not elsewhere classified (principal); I48.1 Persistent atrial fibrillation; I50.32 Chronic diastolic (congestive) heart failure; K80.50 Calculus of bile duct without cholangitis or cholecystitis without obstruction; R00.1 Bradycardia, unspecified; I95.81 Postprocedural hypotension; T44.8X5A Adverse effect of centrally-acting and adrenergic-neuron-blocking agents, initial encounter; E11.9 Type 2 diabetes mellitus without complications; Z79.01 Long term (current) use of anticoagulants; I25.10 Atherosclerotic heart disease of native coronary artery without angina pectoris; K74.60 Unspecified cirrhosis of liver; B19.20 Unspecified viral hepatitis C without hepatic coma; I11.0 Hypertensive heart disease with heart failure; K66.0 Peritoneal adhesions (postprocedural) (postinfection); Z53.8 Procedure and treatment not carried out for other reasons; Z79.84 Long term (current) use of oral hypoglycemic drugs; Y83.8 Other surgical procedures as the cause of abnormal reaction of the patient, or of later complication, without mention of misadventure at the time of the procedure; Z87.891 Personal history of nicotine dependence; Y84.8 Other medical procedures as the cause of abnormal reaction of the patient, or of later complication, without mention of misadventure at the time of the procedure
CPT/HCPCS: 36415; 80053; 82550; 82553; 83605; 83735; 84100; 84484; 85025; 85027; 85610; 93005; 93010; 94760

== ENCOUNTER 2017-11-19 06:09 | Inpatient (IN) | payer OTHER ==
[2017-11-19 06:47] LABS: INR 1.1 (0.82-1.09); PROTHROMBIN TIME (PATIENT) 12.4 SEC (9.7-13.0)
[2017-11-19] MEDS ORDERED: MIDAZOLAM HCL 2 MG/2 ML SINGLE DOSE VIAL ONE (06:57)
[2017-11-19] MEDS ORDERED: ROCURONIUM BROMIDE 50 MG/5 ML VIAL ONE (06:57)
[2017-11-19] MEDS ORDERED: SUCCINYLCHOLINE CHLORIDE 200 MG/10 ML VIAL ONE (06:57)
[2017-11-19] MEDS ORDERED: ePHEDrine SULFATE 50 MG/1 ML AMPULE ONE (06:57)
[2017-11-19] MEDS ORDERED: PROPOFOL 20 ML ONE ×13 (06:57→12:03)
[2017-11-19] MEDS ORDERED: fentaNYL CITRATE 250 MCG/5 ML VIAL ONE ×2 (06:57→09:24)
[2017-11-19] MEDS ORDERED: PHENYLEPHRINE HCL 10 MG/1 ML SINGLE DOSE VIAL ONE (06:58)
[2017-11-19] MEDS ORDERED: THROMBIN (BOVINE) 5,000 UNIT VIAL TP ONE ×2 (07:10→08:37)
[2017-11-19] MEDS ORDERED: BENZOIN/ALOE VERA/STORAX/TOLU 58 ML BOTTLE ONE (07:11)
[2017-11-19] MEDS ORDERED: ALBUTEROL SO4 8 GM HFA INHALER IH ONE (07:50)
[2017-11-19] MEDS ORDERED: HEPARIN NA (PORCINE) 5,000 UNITS/ML 1ML VIAL ONE (08:37)
[2017-11-19] MEDS ORDERED: ceFAZolin SODIUM 1 GM VIAL IVPB ONE ×2 (09:00→13:05)
[2017-11-19] MEDS ORDERED: VANCOMYCIN 1,000 MG VIAL (RESTRICTED TO ID ONLY) IVPB ONE (09:00)
[2017-11-19] MEDS ORDERED: NEOSTIGMINE METHYLSULFATE 0.5 MG/ML - 10 ML MDV ONE (10:39)
[2017-11-19] MEDS ORDERED: ONDANSETRON 4 MG/2 ML VIAL ONE (12:56)
[2017-11-19] MEDS ORDERED: VANCOMYCIN 1,000 MG VIAL (RESTRICTED TO ID ONLY) ONE (12:56)
[2017-11-19] MEDS ORDERED: ceFAZolin SODIUM 1 GM VIAL ONE ×2 (12:56→21:31)
[2017-11-19] MEDS ORDERED: ONDANSETRON 4 MG/2 ML VIAL IVPUSH PRN ×2 (14:11→14:40)
[2017-11-19] MEDS ORDERED: LACTATED RINGERS SOLUTION 1,000 ML IV SCH (14:15)
[2017-11-19] MEDS ORDERED: ACETAMINOPHEN 1000 MG/100 ML VIAL (NON FORMULARY) IVPB SCH (14:15)
--- NOTE | 2017-11-19 14:22 | OP ---
Operative Note - Note: Operative Date: 11/19/17 Pre-Operative Diagnosis: 1. Proximal junctional failure. 2. Lumbar stenosis. 3. Thoracolumbar kyphoscoliosis Operation: 1. ERLIN L2-S1. 2. Inspection of fusion mass. 3. Revision laminectomies L2-S1. 4. T6-L1 SPO's. 5. T6-pelvis PISF. 6. Lumbo-pelvic fixation. 7. Bone autograft. 8. Bone allograft Post-Operative Diagnosis: Same as Pre-op Surgeon: Say Tariq Rib Cloth Knitter: Benjamin Tariq Anesthesiologist/HAMMER RUNNER: Faith Moore Anesthesia: General Specimens Removed: L2-S1 Hardware Estimated Blood Loss (mls): 1,000 Drains & Tubes with Location: 1 x superficial HemoVac Blood Volume Replaced (mls): 500 (Cell Saver) Fluid Volume Replaced (mls): 4,500 (Crystalloid) Operative Report Dictated: Yes
--- NOTE | 2017-11-19 14:25 | PN ---
Progress Note (short form) - Note Progress Note: 77M s/p removal of hardware L2-S1; revision laminectomies L2-S1; T6-L1 osteotomies; T6-pelvis posterior instrumented spinal fusion POD #0. -Pain control: per anaesthesia team. -DVT PPx: - Mechanical ONLY: NIKITA's, SCD's. - Hold chemical DVT PPx. until 72 hrs post-op. -Incentive spirometry. -PT/OT/Rehab, OOB. -WBAT B/L LE. -q4h B/L LE NV checks. -Post-op antibiotics x 2 doses. -NPO until flatus. -f/u AM labs. -d/c lee catheter when ambulating. -Care per medical hospitalist team. -Discharge planning. -Will follow. Say Tariq MD.
[2017-11-19] MEDS ORDERED: oxyCODONE HCL 5 MG TABLET PO PRN (14:40)
[2017-11-19] MEDS ORDERED: HYDROmorphone *PCA* 10MG/50ML DISP.SYRIN PCA ONE (14:55)
[2017-11-19] MEDS ORDERED: HYDROmorphone HCL CARPU-JECT 1 MG/1 ML DISP.SYRIN IVPUSH PRN (14:59)
[2017-11-19] MEDS ORDERED: HYDROmorphone *PCA* 10MG/50ML DISP.SYRIN PCA SCH ×2 (15:00→15:06)
[2017-11-19] MEDS: LACTATED RINGERS SOLUTION 1,000 ML IV SCH (15:05)
[2017-11-19] MEDS: CEFAZOLIN 1 GM in DEXTROSE 5%-WATER - 50 ML IVPB SCH (20:00)
--- NOTE | 2017-11-19 21:16 | OP ---
DATE OF OPERATION: 11/19/2017 SURGEON: Say Tariq MD CLEANING ASSOCIATE: Benjamin Tariq MD PREOPERATIVE DIAGNOSIS: Adjacent previous fusion failure with kyphoscoliosis and stenosis involving the junction of the lumbar spine and proximal end of previous decompression with associated segmental instability. POSTOPERATIVE DIAGNOSIS: Adjacent previous fusion failure with kyphoscoliosis and stenosis involving the junction of the lumbar spine and proximal end of previous decompression with associated segmental instability. OPERATION PERFORMED: 1. Removal of hardware, L2 to S1. 2. Inspection of fusion mass. 3. Revision laminectomy from L1 to S1. 4. Pedicle screw instrumentation, T6 to S1. 5. Lumbar pelvic fixation with pelvic screws. 6. Posterolateral arthrodesis, T6 to S1. 7. Medina-Moore osteotomies from T6 to L1, that is x6. 8. Complex wound closure, 50 cm. ANTIBIOTICS: Kefzol 2 g, vancomycin 1 g given preoperatively; Kefzol 1 g given intraoperatively. ANESTHESIA: General. BLOOD LOSS: Approximately 1 L. Cell Saver utilized. OPERATION DETAILS: Patient was correctly identified, brought to the operating room, placed prone on a vascular table with longitudinal gel bolsters. The belly was free, and all bony prominences were appropriately padded. The draping was a window drape. Skin prep was routine with Betadine scrub solution, wiped off with alcohol, and DuraPrep applied. Timeout was called. Imaging was available for intraoperative evaluation including MRI and CT scans. In the prone position, midline longitudinal incision, the old wound was opened, and the area of the lumbar spine extended right up to almost the base of the neck. A subperiosteal dissection of the thoracic spine was performed. Hemostasis achieved on the way. The dissection was taken out to the tip of the transverse processes at each level. Thoracolumbar junction was identified. The original hardware was found, appropriately freed of all soft tissues using a unipolar Bovie. All screws were removed. Screws on the left-hand side were found to be virtually every level loose, and on the right side, loose but not as significantly free and loose. The pseudoarthrosis at the L5-S1 junction appeared highly suspicious, and I would view this as a pseudoarthrosis. This was taken down using Leksell rongeurs that all fibrous tissue between the S1 pedicle screw and the ala of sacrum were free of soft tissues. All the hardware was removed. The fusion mass was inspected, and the pseudoarthrosis readily noted. Once this had been performed, the pedicles from L2 to S1 were re-inserted, new screws, each one measuring 1-mm thick in diameter. These were 7.5 x 40 screws (Mir Tesen). The ala of the sacrum was dissected. The soft tissue off the back of the ala of the sacrum as well as the elements of the posterior ilium, and 2 large screws were inserted into the ilium. These were directed towards the tip of the greater trochanter along the bone bed. The left side measured 90 x 10 mm; the right side 60 x 10 mm. For the insertion of the thoracic pedicle screws, appropriate facetectomies were performed, but these were extended outwards to complete them as complete Medina-Moore type osteotomies from T6 right down to T12, that is at 6 levels. This encouraged improvement of his kyphosis. The rods were appropriately bent, and in situ benders utilized as well. Prior to seating of rods, appropriate neuromonitoring was utilized, found to reveal that all screws were well above the normal parameters of safety for neuromonitoring. The rods were fixed solidly onto the caps using the persuader devices and appropriate instrumentation. Two DTC crosslinks applied. Solid fixation achieved. Alignment of the spine appeared excellent. The decompression had been completed. This decompression of the laminae was with the use of Leksell as well as Kerrison upcuts appropriately to expose basically from T12 all the way down to S1. The theca was completely freed. The hemostasis was achieved as best we could throughout the procedure. Once the rods were seated, the deformity correction achieved, the posterolateral arthrodesis was completed from T6 to S1. This was a combination of allograft chips and some small amount of autograft and bone mineral putty which was allograft expansion. This concluded the thoracolumbopelvic instrumented posterolateral arthrodesis. Wounds were thoroughly lavaged. The muscle trimmed appropriately to rid it of necrotic muscle, closure of muscle 1 Vicryl, fascia 1 Vicryl, subcutaneous 1 Vicryl and 2-0 Vicryl, skin marley. DRAINAGE: 1/8-inch x1. OVERALL COMMENT: Operation went well. No complications. The operation time was about 4-1/2 hours. MD AL Asencio/[id number] MTDD
[2017-11-19] MEDS ORDERED: DEXTROSE 5%-WATER - 50 ML IVPB ONE (21:31)
[2017-11-19] MEDS: LOSARTAN POTASSIUM 50 MG TABLET (FP) PO SCH (21:33)
[2017-11-19] MEDS: METOPROLOL TARTRATE 50 MG TABLET (FP) PO SCH (21:34)
[2017-11-20] MEDS ORDERED: ceFAZolin SODIUM 1 GM VIAL ONE (01:17)
[2017-11-20] MEDS ORDERED: DEXTROSE 5%-WATER - 50 ML IVPB ONE (01:18)
[2017-11-20] MEDS: CEFAZOLIN 1 GM in DEXTROSE 5%-WATER - 50 ML IVPB SCH (01:23)
[2017-11-20 06:08] LABS: HEMATOCRIT 34.7 % (35.4-49); HEMOGLOBIN 11.5 GM/dL (11.7-16.9); MCH 31.4 pg (25.7-33.7); MCHC 33.3 g/dl (32.0-35.9); MEAN CELL VOLUME 94.4 fl (80-96); MEAN PLT VOLUME 10.1 fl (7.5-11.1); PLATELET COUNT 101 K/MM3 (134-434); RBC 3.67 M/mm3 (4.00-5.60); RDW 14.5 % (11.9-15.9); WHITE BLOOD COUNT 14.4 K/mm3 (4.0-10.0)
[2017-11-20 06:57] LABS: ANION GAP 8 (8-16); BLOOD UREA NITROGEN 19 mg/dL (7-18); CALCIUM 7.6 mg/dL (8.5-10.1); CHLORIDE 107 mmol/L (98-107); CO2 26 mmol/L (21-32); GLUCOSE,RANDOM 132 mg/dL (74-106); POTASSIUM 4.6 mmol/L (3.5-5.1); SODIUM 141 mmol/L (136-145)
--- NOTE | 2017-11-20 09:13 | CON.GU ---
Consult - History of Present Illness Chief Complaint: hematuria History of Present Illness: 77 yo male s/p lumbar spine surgery yesterday, noted to have gross hematuria in lee in recovery room. Pt does give h/o BPH and possible prostate procedure in the past. At baseline no voiding symptoms. Lee currently in place with clear urine - Alcohol/Substance Use Hx Alcohol Use: No - Smoking History Smoking history: Former smoker Have you smoked in the past 12 months: No If you are a former smoker, when did you quit?: 1991 Home Medications - Allergies Allergies/Adverse Reactions: Allergies Allergy/AdvReac Type Severity Reaction Status Date / Time No Known Drug Allergies Allergy Verified 11/19/17 06:51 - Home Medications Home Medications: Ambulatory Orders Warfarin Na [Coumadin -] 7.5 mg PO HS 01/30/17 Losartan Potassium [Cozaar] 100 mg PO HS 02/12/17 Metoprolol Tartrate [Lopressor -] 50 mg PO HS 11/02/17 Warfarin Na [Coumadin] 5 mg PO ASDIR 11/02/17 Physical Exam- Vital Signs: Vital Signs Temperature 98.9 F 11/20/17 06:00 Pulse Rate 80 11/20/17 06:59 Respiratory Rate 18 11/20/17 06:59 Blood Pressure 126/74 11/20/17 06:59 O2 Sat by Pulse Oximetry (%) 98 11/19/17 20:00 Renal/: Yes: Lee Present Labs: CBC, BMP 11/20/17 05:30 11/20/17 05:30 Problem List - Problems (1) Hematuria Assessment/Plan: gross hematuria resolved, likely related to BPH. May d/c lee when no longer medically necessary. No further workup at this time Code(s): R31.9 - HEMATURIA, UNSPECIFIED
[2017-11-20] MEDS ORDERED: HYDROmorphone *PCA* 10MG/50ML DISP.SYRIN PCA SCH ×2 (12:00→22:23)
--- NOTE | 2017-11-20 12:20 | PN ---
Teaching Attending Note Name of Resident: Jose Luis De La Rosa ATTENDING PHYSICIAN STATEMENT I saw and evaluated the patient. I reviewed the resident's note and discussed the case with the resident. I agree with the resident's findings and plan as documented. SUBJECTIVE: Pt seen and examined in the ICU. Briefly, 77yo male with h/o lumbar stenosis, atrial fibrillation, hep c who was admitted for elective removal of hardware L2- S1/revision L2-S1 laminectomies/T6-L1 SPO/T6-pelvis PISF. 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 States pain uncontrolled. Denies shortness of breath or chest pain. No flatus. OBJECTIVE: Vital Signs Period Temp Pulse Resp BP Sys/De La Vega Pulse Ox Last 24 Hr 97.6 F-100.5 F 67-90 15-18 80-159/24-95 92-100 Intake & Output 11/17/17 11/18/17 11/19/17 11/20/17 23:59 23:59 23:59 23:59 Intake Total 5580 1100 Output Total 2400 460 Balance 3180 640 Weight 79.379 kg Gen: NAD at rest Heart: RRR Lung: decreased breath sounds at the bases Abd: soft, nontender Ext: no edema CBC, BMP 11/20/17 05:30 11/20/17 05:30 Active Medications Hydromorphone HCl (Dilaudid Greens Laborer -) 10 mg FREIGHT ELEVATOR OPERATOR FREIGHT ELEVATOR OPERATOR VALERIANO; Protocol Stop: 11/26/17 11:59 Lactated Ringer's (Lactated Ringers Solution) 1,000 mls @ 75 mls/hr IV ASDIR VALERIANO Last Admin: 11/19/17 15:05 Dose: 0 mls Lorazepam (Ativan Injection -) 1 mg IVPUSH Q8H PRN PRN Reason: BACK PAIN Losartan Potassium (Cozaar -) 100 mg PO HS VALERIANO Last Admin: 11/19/17 21:33 Dose: 100 mg Metoprolol Tartrate (Lopressor -) 50 mg PO HS VALERIANO Last Admin: 11/19/17 21:34 Dose: 50 mg Ondansetron HCl (Zofran Injection) 4 mg IVPUSH Q6H PRN PRN Reason: NAUSEA AND/OR VOMITING Oxycodone HCl (Roxicodone -) 5 mg PO Q4H PRN PRN Reason: PAIN LEVEL 1-5 Stop: 11/20/17 14:39 ASSESSMENT AND PLAN: Lumbar Stenosis s/p removal of hardware L2-S1/revision L2-S1 laminectomies/T6-L1 SPO/T6-pelvis PISF Atrial Fibrillation Hep C Anemia - pain control - incentive spirometry - IVF - monitor H/H - monitor drain output - PO/activity/DVT prophylaxis/disposition per surgery
--- NOTE | 2017-11-20 13:46 | CONSULT ---
Consultation: CONSULT REQUEST: We have been asked to medically evaluate this patient for post op ICU monitoring HISTORY OF PRESENT ILLNESS: [age]yo male with h/o lumbar stenosis, atrial fibrillation, Hep C who was admitted for elective removal of hardware L2-S1/ revision L2-S1 laminectomies/T6-L1 SPO/T6-pelvis PISF. 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 Says he is still in pain from the surgery. Has not passed flatus Denies chest pain, sob, dizziness, swelling. REVIEW OF SYSTEMS: CONSTITUTIONAL: Absent: fever, chills, diaphoresis, generalized weakness, malaise, loss of appetite, weight change HEENT: Absent: rhinorrhea, nasal congestion, throat pain, throat swelling, difficulty swallowing, mouth swelling, ear pain, eye pain, visual changes CARDIOVASCULAR: Absent: chest pain, syncope, palpitations, irregular heart rate, lightheadedness , peripheral edema RESPIRATORY: Absent: cough, shortness of breath, dyspnea with exertion, orthopnea, wheezing, stridor, hemoptysis GASTROINTESTINAL: Absent: abdominal pain, abdominal distension, nausea, vomiting, diarrhea, constipation, melena, hematochezia GENITOURINARY: Absent: dysuria, frequency, urgency, hesitancy, hematuria, flank pain, genital pain MUSCULOSKELETAL: back pain Absent: myalgia, arthralgia, joint swelling, neck pain HEMATOLOGIC/IMMUNOLOGIC: Absent: easy bleeding, easy bruising, lymphadenopathy, frequent infections NEUROLOGIC: Absent: headache, focal weakness or paresthesias, dizziness, unsteady gait, seizure, mental status changes, bladder or bowel incontinence PHYSICAL EXAMINATION Vital Signs - 24 hr 11/19/17 11/19/17 11/19/17 14:27 14:40 14:55 Temperature 97.6 F Pulse Rate 73 69 67 Respiratory 16 18 18 Rate Blood Pressure 129/75 149/93 115/89 O2 Sat by Pulse 100 100 100 Oximetry (%) 11/19/17 11/19/17 11/19/17 15:10 15:25 15:40 Temperature Pulse Rate 68 68 78 Respiratory 18 18 18 Rate Blood Pressure 132/80 115/74 142/94 O2 Sat by Pulse 100 100 100 Oximetry (%) 11/19/17 11/19/17 11/19/17 15:55 16:10 16:25 Temperature Pulse Rate 77 77 86 Respiratory 18 18 18 Rate Blood Pressure 153/90 153/90 144/85 O2 Sat by Pulse 99 98 99 Oximetry (%) 11/19/17 11/19/17 11/19/17 16:40 16:55 17:10 Temperature Pulse Rate 84 85 87 Respiratory 18 18 18 Rate Blood Pressure 156/87 150/89 159/85 O2 Sat by Pulse 98 98 100 Oximetry (%) 11/19/17 11/19/17 11/19/17 17:25 17:40 18:01 Temperature 98.2 F 97.9 F 97.9 F Pulse Rate 83 70 71 Respiratory 18 16 15 Rate Blood Pressure 123/93 80/50 101/60 O2 Sat by Pulse 100 94 L Oximetry (%) 11/19/17 11/19/17 11/19/17 18:05 18:20 19:05 Temperature 97.9 F 97.9 F Pulse Rate 78 80 90 Respiratory 15 16 18 Rate Blood Pressure 138/68 127/89 130/70 O2 Sat by Pulse 92 L 98 Oximetry (%) 11/19/17 11/19/17 11/19/17 20:00 22:00 23:05 Temperature 97.9 F 98.9 F Pulse Rate 80 88 80 Respiratory 16 18 18 Rate Blood Pressure 130/70 118/24 140/70 O2 Sat by Pulse 98 Oximetry (%) 11/20/17 11/20/17 11/20/17 00:00 02:00 03:00 Temperature 100.5 F H Pulse Rate 80 78 78 Respiratory 18 18 18 Rate Blood Pressure 134/73 84/72 122/84 O2 Sat by Pulse Oximetry (%) 11/20/17 11/20/17 11/20/17 03:05 04:00 05:00 Temperature Pulse Rate 84 78 80 Respiratory 18 18 18 Rate Blood Pressure 122/84 118/81 128/74 O2 Sat by Pulse Oximetry (%) 11/20/17 11/20/17 11/20/17 06:00 06:59 08:00 Temperature 98.9 F 97.9 F Pulse Rate 76 80 85 Respiratory 18 18 18 Rate Blood Pressure 126/75 126/74 121/95 O2 Sat by Pulse Oximetry (%) 11/20/17 11/20/17 11/20/17 09:00 10:00 10:31 Temperature 98 F Pulse Rate 80 Respiratory 18 Rate Blood Pressure 143/83 143/88 O2 Sat by Pulse 100 100 Oximetry (%) 11/20/17 11/20/17 11:05 12:00 Temperature Pulse Rate 85 87 Respiratory 18 18 Rate Blood Pressure 120/95 120/95 O2 Sat by Pulse Oximetry (%) GENERAL: Awake, alert, and fully oriented, in no acute distress. EYES: Pupils equal, round and reactive to light, extraocular movements intact, sclera anicteric, conjunctiva clear. EARS, NOSE, THROAT: oropharynx clear without exudates. Moist mucous membranes. NECK: supple without lymphadenopathy, JVD, or masses. LUNGS: Breath sounds equal, clear to auscultation bilaterally. HEART: irregular rhythm ABDOMEN: Soft, nontender, not distended, hypoactive bowel sounds Back: surgical dressing in place. UPPER EXTREMITIES: 2+ pulses,No peripheral edema. LOWER EXTREMITIES: 2+ pulses, warm, No peripheral edema. NEUROLOGICAL: Cranial nerves II-XII intact. Normal speech. Laboratory Results - last 24 hr 11/20/17 11/20/17 05:30 05:30 WBC 14.4 H RBC 3.67 L Hgb 11.5 L Hct 34.7 L D MCV 94.4 MCH 31.4 MCHC 33.3 RDW 14.5 Plt Count 101 L D MPV 10.1 Sodium 141 Potassium 4.6 Chloride 107 Carbon Dioxide 26 Anion Gap 8 BUN 19 H Creatinine 1.0 Creat Clearance w eGFR > 60 Random Glucose 132 H D Calcium 7.6 L Active Medications Generic Name Dose Route Start Last Admin Trade Name Freq PRN Reason Stop Dose Admin Hydromorphone HCl 10 mg 11/20/17 12:00 11/20/17 12:00 Dilaudid Public Address Announcer - GERMAN PROFESSOR 11/26/17 11:59 Not Given GERMAN PROFESSOR VALERIANO Protocol Lactated Ringer's 1,000 mls @ 75 mls/hr 11/19/17 14:45 11/19/17 15:05 Lactated Ringers Solution IV 0 mls ASDIR VALERIANO Administration Lorazepam 1 mg 11/19/17 15:01 Ativan Injection - IVPUSH Q8H PRN BACK PAIN Losartan Potassium 100 mg 11/19/17 22:00 11/19/17 21:33 Cozaar - PO 100 mg HS VALERIANO Administration Metoprolol Tartrate 50 mg 11/19/17 22:00 11/19/17 21:34 Lopressor - PO 50 mg HS VALERIANO Administration Ondansetron HCl 4 mg 11/19/17 14:40 Zofran Injection IVPUSH Q6H PRN NAUSEA AND/OR VOMITING Oxycodone HCl 5 mg 11/19/17 14:40 11/20/17 13:00 Roxicodone - PO 11/20/17 14:39 5 mg Q4H PRN Administration PAIN LEVEL 1-5 ASSESSMENT/PLAN: s/p removal of hardware L2-S1/revision L2-S1 laminectomies/T6-L1 SPO/T6-pelvis PISF -pain control with dilaudid GERMAN PROFESSOR -Zofran for nausea -IV fluids -monitor H&H -remove lee when ambulating -PT -O2 supplementation as needed -incentive spirometer -monitor drain output -Fu am labs Atrial Fibrillation -Hold chemical DVT PPx. until 72 hrs post-op per surgery -rate control with Metoprolol 50mg FEN IV fluids LR @ 75 monitor lytes NPO until flatus Continue ICU monitoring Dispo: We will continue to follow the patient. Thank you for this consultative opportunity. Visit type - Emergency Visit Emergency Visit: Yes ED Registration Date: 11/19/17 Care time: The patient presented to the Emergency Department on the above date and was hospitalized for further evaluation of their emergent condition. - New Patient This patient is new to me today: Yes Date on this admission: 11/20/17 - Critical Care Critical Care patient: Yes Total Critical Care Time (in minutes): 40 Critical Care Statement: The care of this patient involved high complexity decision making to prevent further life threatening deterioration of the patient 's condition and/or to evaluate & treat vital organ system(s) failure or risk of failure.
[2017-11-20] MEDS: LACTATED RINGERS SOLUTION 1,000 ML IV SCH (16:00)
--- NOTE | 2017-11-20 17:33 | PN ---
Progress Note (short form) - Note Progress Note: Subjective: The patient was seen and examined in the ICU, he has complaints of back pain. Remains on ROLL MACHINE OPERATOR Current Medications Generic Name Dose Route Start Last Admin Trade Name Molina PRN Reason Stop Dose Admin Hydromorphone HCl 10 mg 11/20/17 12:00 11/20/17 12:00 Dilaudid Dietitian Teacher - ROLL MACHINE OPERATOR 11/26/17 11:59 Not Given ROLL MACHINE OPERATOR VALERIANO Protocol Lactated Ringer's 1,000 mls @ 75 mls/hr 11/19/17 14:45 11/19/17 15:05 Lactated Ringers Solution IV 0 mls ASDIR VALERIANO Administration Lorazepam 1 mg 11/19/17 15:01 Ativan Injection - IVPUSH Q8H PRN BACK PAIN Losartan Potassium 100 mg 11/19/17 22:00 11/19/17 21:33 Cozaar - PO 100 mg HS VALERIANO Administration Metoprolol Tartrate 50 mg 11/19/17 22:00 11/19/17 21:34 Lopressor - PO 50 mg HS VALERIANO Administration Ondansetron HCl 4 mg 11/19/17 14:40 Zofran Injection IVPUSH Q6H PRN NAUSEA AND/OR VOMITING Objective Vital Signs Period Temp Pulse Resp BP Sys/De La Vega Pulse Ox Last 24 Hr 97.9 F-100.5 F 70-90 14-18 77-143/24-95 92-100 Physical Exam: General: NAD, A&Ox3 Lungs: CTA bilaterally Heart: RRR, S1S2 Abd: Soft, non-tender, non-distended Skin: Back dressing with dried blood, dressing intact Neuro: Moving all extremities spontaneously CBCD WBC 14.4 K/mm3 (4.0-10.0) H 11/20/17 05:30 RBC 3.67 M/mm3 (4.00-5.60) L 11/20/17 05:30 Hgb 11.5 GM/dL (11.7-16.9) L 11/20/17 05:30 Hct 34.7 % (35.4-49) L D 11/20/17 05:30 MCV 94.4 fl (80-96) 11/20/17 05:30 MCHC 33.3 g/dl (32.0-35.9) 11/20/17 05:30 RDW 14.5 % (11.9-15.9) 11/20/17 05:30 Plt Count 101 K/MM3 (134-434) L D 11/20/17 05:30 MPV 10.1 fl (7.5-11.1) 11/20/17 05:30 CMP Sodium 141 mmol/L (136-145) 11/20/17 05:30 Potassium 4.6 mmol/L (3.5-5.1) 11/20/17 05:30 Chloride 107 mmol/L (98-107) 11/20/17 05:30 Carbon Dioxide 26 mmol/L (21-32) 11/20/17 05:30 Anion Gap 8 (8-16) 11/20/17 05:30 BUN 19 mg/dL (7-18) H 11/20/17 05:30 Creatinine 1.0 mg/dL (0.7-1.3) 11/20/17 05:30 Creat Clearance w eGFR > 60 (>60) 11/20/17 05:30 Random Glucose 132 mg/dL (74-106) H D 11/20/17 05:30 Calcium 7.6 mg/dL (8.5-10.1) L 11/20/17 05:30 Assessment: This is a 77 year old male with PMHx of lumbar stenosis, a.fib, HCV who was admitted for elective removal of hardware L2-S1/revision L2-S1 laminectomies/T6-L1 SPO/T6-pelvis PISF. Plan: 1) S/p removal of hardware L2-S1; revision laminectomies L2-S1; T6-L1 osteotomies; T6-pelvis posterior instrumented spinal fusion - POD#1 - Dilaudid ROLL MACHINE OPERATOR - Q4h b/l lower extremity neurovascular checks - D/c lee when ambulating - Incentive spirometry - Mechanical DVT prophylaxis only - Appreciate surgery consult 2) A.fib - On Coumadin at home, no anticoagulation now per surgery 3) HCV - Outpatient follow-up 4) F/E/N: - NPO - Monitor electrolytes 5) Prophylaxis: - TEDs only - PT 6) Dispo: - Requires continued inpatient care CODE STATUS: FULL CODE Visit type - Emergency Visit Emergency Visit: Yes ED Registration Date: 11/19/17 Care time: The patient presented to the Emergency Department on the above date and was hospitalized for further evaluation of their emergent condition. - New Patient This patient is new to me today: Yes Date on this admission: 11/20/17 - Critical Care Critical Care patient: No
[2017-11-20] MEDS: METOPROLOL TARTRATE 50 MG TABLET (FP) PO SCH (21:38)
[2017-11-20] MEDS: LOSARTAN POTASSIUM 50 MG TABLET (FP) PO SCH (21:38)
[2017-11-20] MEDS ORDERED: ONDANSETRON 4 MG/2 ML VIAL IVPUSH PRN (22:23)
--- NOTE | 2017-11-21 01:13 | RAPID ---
Physical Examination Vital Signs: Vital Signs Temperature 99.2 F 11/20/17 18:09 Pulse Rate 85 11/20/17 18:09 Respiratory Rate 15 11/20/17 21:00 Blood Pressure 107/55 11/20/17 18:09 O2 Sat by Pulse Oximetry (%) 100 11/20/17 21:00 Findings/Remarks: Rapid response was called because the patient had pulled out his surgical drain and his IV. On arrival the patient was sitting on the edge of his bed stating that he needed to call his because he had no wallet. Patient denies pulling out his drain or IV. Patient A&O x2 at this time; unsure of where he was. The patient denies increased pain, numbness, weakness or tingling at this time. Constitutional: Yes: Well Nourished, Anxious Eyes: Yes: Conjunctiva Clear, EOM Intact, PERRL HENT: Yes: Atraumatic, Normocephalic Neck: Yes: Supple, Trachea Midline Cardiovascular: Yes: Regular Rate and Rhythm, S1, S2. No: JVD, Gallop, Murmur, Rub Respiratory: Yes: Regular, CTA Bilaterally Gastrointestinal: Yes: Normal Bowel Sounds, Soft. No: Tenderness, Rebound Musculoskeletal: Yes: Back Pain (at surgical site, no change in intensity) Extremities: Yes: WNL Edema: No Wound/Incision: Yes: Other (1st post op dressing intact, serosanguinous drainage can be seen along the whole dressing. gauze on inside of dressing seen to be soaked with this drainage. No active draining seen around dressing.) Neurological: Yes: WNL, Alert, Oriented (oriented to self and year only.), Cran Nerves II-XII Intact. No: Facial Droop, Numbness, Paresthesia, Tingling, Weakness ...Motor Strength: LUE (5/5), LLE (5/5), RUE (5/5), RLE (5/5) Labs: CBC, BMP 11/20/17 05:30 11/20/17 05:30 Rapid Response - Rapid Response Assessment: Patient observed to have pulled out his IV line a drainage. The patient's AMS is likely delirium 2/2 to his dilaudid TUBE MACHINE OPERATOR HELPER, which was connected at the time. Patient's neuro exam WNL. Patient not complaining of increased pain. Patient moving all 4 limbs spontaneously. Vital signs stable. Call placed to Dr. Tariq; awaiting call back. Will monitor.
[2017-11-21] MEDS: LACTATED RINGERS SOLUTION 1,000 ML IV SCH ×2 (01:58→12:18)
[2017-11-21] MEDS: LORazepam 2 MG/ML SDV VIAL IVPUSH PRN ×2 (02:39→13:17)
[2017-11-21 07:07] LABS: BASO % 0.3 % (0-2.0); HEMATOCRIT 33.2 % (35.4-49); HEMOGLOBIN 11.2 GM/dL (11.7-16.9); LYMPH % 4.1 % (8-40); MCH 31.8 pg (25.7-33.7); MCHC 33.7 g/dl (32.0-35.9); MEAN CELL VOLUME 94.3 fl (80-96); MEAN PLT VOLUME 10.1 fl (7.5-11.1); MONO % 9.7 % (3.8-10.2); NEUT % 85.9 % (42.8-82.8); PLATELET COUNT 89 K/MM3 (134-434); RBC 3.53 M/mm3 (4.00-5.60); RDW 14.5 % (11.9-15.9)
[2017-11-21 07:45] LABS: ALBUMIN 2.9 g/dl (3.4-5.0); ANION GAP 9 (8-16); BLOOD UREA NITROGEN 17 mg/dL (7-18); CALCIUM 8.1 mg/dL (8.5-10.1); CHLORIDE 104 mmol/L (98-107); CO2 28 mmol/L (21-32); GLUCOSE,RANDOM 118 mg/dL (74-106); MAGNESIUM 1.8 mg/dL (1.8-2.4); POTASSIUM 3.9 mmol/L (3.5-5.1); SODIUM 141 mmol/L (136-145)
[2017-11-21 08:08] LABS: ALK PHOS 58 U/L (45-117); CREATININE 0.8 mg/dL (0.7-1.3); PHOSPHOROUS 2.4 mg/dL (2.5-4.9); SGOT/AST 77 U/L (15-37); SGPT/ALT 33 U/L (12-78); TOT PROT 5.3 g/dl (6.4-8.2)
[2017-11-21] MEDS: oxyCODONE HCL 5 MG TABLET PO PRN ×3 (08:19→21:21)
[2017-11-21] MEDS: KETOROLAC TROMETHAMINE 15 MG/ML VIAL IVPB SCH ×2 (11:01→11:39)
--- NOTE | 2017-11-21 11:01 | PN ---
Progress Note (short form) - Note Progress Note: Subjective: The patient was seen and examined at the bedside, he has oozing from his incision Monitor CBC closely Current Medications Generic Name Dose Route Start Last Admin Trade Name Freq PRN Reason Stop Dose Admin Lactated Ringer's 1,000 mls @ 75 mls/hr 11/20/17 22:23 11/21/17 01:58 Lactated Ringers Solution IV 75 mls/hr ASDIR VALERIANO Administration Ketorolac Tromethamine 15 mg 11/21/17 10:00 11/21/17 11:01 Toradol Injection - IVPB 11/26/17 09:59 15 mg BID VALERIANO Administration Lorazepam 1 mg 11/20/17 22:23 11/21/17 02:39 Ativan Injection - IVPUSH 1 mg Q8H PRN Administration BACK PAIN Losartan Potassium 100 mg 11/21/17 22:00 Cozaar - PO HS VALERIANO Metoprolol Tartrate 50 mg 11/21/17 22:00 Lopressor - PO HS VALERIANO Ondansetron HCl 4 mg 11/20/17 22:23 Zofran Injection IVPUSH Q6H PRN NAUSEA AND/OR VOMITING Oxycodone HCl 20 mg 11/21/17 07:48 11/21/17 08:19 Roxicodone - PO 20 mg Q6H PRN Administration PAIN LEVEL 4 - 6 Objective Vital Signs Period Temp Pulse Resp BP Sys/De La Vega Pulse Ox Last 24 Hr 97.7 F-99.3 F 78-92 14-20 77-151/51-95 100 Physical Exam: General: NAD, A&Ox3 Lungs: CTA bilaterally Heart: RRR, S1S2 Abd: Soft, non-tender, non-distended Skin: Back dressing with blood on the superior and inferior aspect Neuro: Moving all extremities spontaneously CBCD WBC 12.0 K/mm3 (4.0-10.0) H 11/21/17 06:30 RBC 3.53 M/mm3 (4.00-5.60) L 11/21/17 06:30 Hgb 11.2 GM/dL (11.7-16.9) L 11/21/17 06:30 Hct 33.2 % (35.4-49) L 11/21/17 06:30 MCV 94.3 fl (80-96) 11/21/17 06:30 MCHC 33.7 g/dl (32.0-35.9) 11/21/17 06:30 RDW 14.5 % (11.9-15.9) 11/21/17 06:30 Plt Count 89 K/MM3 (134-434) L 11/21/17 06:30 MPV 10.1 fl (7.5-11.1) 11/21/17 06:30 CMP Sodium 141 mmol/L (136-145) 11/21/17 06:30 Potassium 3.9 mmol/L (3.5-5.1) 11/21/17 06:30 Chloride 104 mmol/L (98-107) 11/21/17 06:30 Carbon Dioxide 28 mmol/L (21-32) 11/21/17 06:30 Anion Gap 9 (8-16) 11/21/17 06:30 BUN 17 mg/dL (7-18) 11/21/17 06:30 Creatinine 0.8 mg/dL (0.7-1.3) 11/21/17 06:30 Creat Clearance w eGFR > 60 (>60) 11/21/17 06:30 Random Glucose 118 mg/dL (74-106) H 11/21/17 06:30 Calcium 8.1 mg/dL (8.5-10.1) L 11/21/17 06:30 Total Bilirubin 1.0 mg/dL (0.2-1.0) 11/21/17 06:30 AST 77 U/L (15-37) H D 11/21/17 06:30 ALT 33 U/L (12-78) 11/21/17 06:30 Alkaline Phosphatase 58 U/L (45-117) D 11/21/17 06:30 Total Protein 5.3 g/dl (6.4-8.2) L 11/21/17 06:30 Albumin 2.9 g/dl (3.4-5.0) L 11/21/17 06:30 Assessment: This is a 77 year old male with PMHx of lumbar stenosis, a.fib, HCV who was admitted for elective removal of hardware L2-S1/revision L2-S1 laminectomies/T6-L1 SPO/T6-pelvis PISF. Plan: 1) S/p removal of hardware L2-S1; revision laminectomies L2-S1; T6-L1 osteotomies; T6-pelvis posterior instrumented spinal fusion - POD#2: now with oozing on the top and bottom of the incision, awaiting call back from Dr. Tariq to discuss, monitor CBC closely - Discontinued Dilaudid SUPPLY CHAIN ASSISTANT this morning, rapid response called overnight as the patient pulled out his IV 2/2 possible toxic encephalopathy 2/2 dilaudid, causing delirium- resolved - Q4h b/l lower extremity neurovascular checks - Patient ambulating, can discontinue lee catheter - Incentive spirometry - Mechanical DVT prophylaxis only - Appreciate surgery consult 2) Billy - On Coumadin at home, no anticoagulation now per surgery - Awaiting call back from Dr. Tariq to discuss restarting anticoagulation 3) HCV - Outpatient follow-up 4) F/E/N: - Soft, diabetic diet - Monitor electrolytes 5) Prophylaxis: - TEDs only - PT 6) Dispo: - Requires continued inpatient care CODE STATUS: FULL CODE Visit type - Emergency Visit Emergency Visit: Yes ED Registration Date: 11/19/17 Care time: The patient presented to the Emergency Department on the above date and was hospitalized for further evaluation of their emergent condition. - New Patient This patient is new to me today: No - Critical Care Critical Care patient: No
[2017-11-21 13:26] LABS: HEMATOCRIT 30.5 % (35.4-49); HEMOGLOBIN 10.1 GM/dL (11.7-16.9); MCH 31.3 pg (25.7-33.7); MEAN CELL VOLUME 94.9 fl (80-96); MEAN PLT VOLUME 10.1 fl (7.5-11.1); PLATELET COUNT 82 K/MM3 (134-434); RBC 3.21 M/mm3 (4.00-5.60); RDW 14.2 % (11.9-15.9); WHITE BLOOD COUNT 13.1 K/mm3 (4.0-10.0)
[2017-11-21] MEDS ORDERED: METOPROLOL TARTRATE 25 MG TABLET (FP) PO ONE (14:30)
[2017-11-21 17:29] LABS: HEMOGLOBIN 10.1 GM/dL (11.7-16.9); MCH 31.8 pg (25.7-33.7); MCHC 33.6 g/dl (32.0-35.9); MEAN CELL VOLUME 94.6 fl (80-96); MEAN PLT VOLUME 10.3 fl (7.5-11.1); PLATELET COUNT 93 K/MM3 (134-434); RBC 3.17 M/mm3 (4.00-5.60); RDW 14.3 % (11.9-15.9)
[2017-11-21] MEDS ORDERED: ALBUTEROL SO4 0.083% IH SOL 2.5 MG/3 ML VIAL.NEB. NEB PRN (17:56)
--- NOTE | 2017-11-21 19:12 | PN ---
Progress Note (short form) - Note Progress Note: POD#2 Patient stable after a difficult past 24 hrs due to confusion Now fully orientated Pain well controlled at present. Did walk with PT Vtals and Ht all stable as per chart. CVS Stable RESP Clear ABD Soft Minimal distension B/s Absent no flatus as yet. Wound now dry Patient pulled drain Blood soaked dressing changed now dry Neuro At baseline ASSESS Making steady progress following a T6 to pelvis Stabilization PLAN Mobilize as tolerated Pain mx Start a light diet D/C planning to rehab ?Sat
[2017-11-21] MEDS: LOSARTAN POTASSIUM 50 MG TABLET (FP) PO SCH (21:20)
[2017-11-21] MEDS: METOPROLOL TARTRATE 50 MG TABLET (FP) PO SCH (21:20)
[2017-11-22] MEDS: LACTATED RINGERS SOLUTION 1,000 ML IV SCH (01:44)
[2017-11-22 07:23] LABS: BASO % 0.4 % (0-2.0); EOS % 0.9 % (0-4.5); HEMATOCRIT 29.1 % (35.4-49); HEMOGLOBIN 9.7 GM/dL (11.7-16.9); LYMPH % 8.2 % (8-40); MCH 31.7 pg (25.7-33.7); MCHC 33.2 g/dl (32.0-35.9); MEAN CELL VOLUME 95.6 fl (80-96); MEAN PLT VOLUME 9.9 fl (7.5-11.1); NEUT % 82.5 % (42.8-82.8); PLATELET COUNT 90 K/MM3 (134-434); RBC 3.05 M/mm3 (4.00-5.60); RDW 14.2 % (11.9-15.9); WHITE BLOOD COUNT 9.5 K/mm3 (4.0-10.0)
[2017-11-22 07:43] LABS: ALBUMIN 2.4 g/dl (3.4-5.0); ANION GAP 6 (8-16); BLOOD UREA NITROGEN 19 mg/dL (7-18); CALCIUM 8.1 mg/dL (8.5-10.1); CHLORIDE 105 mmol/L (98-107); CO2 30 mmol/L (21-32); GLUCOSE,RANDOM 108 mg/dL (74-106); SGOT/AST 52 U/L (15-37); SODIUM 141 mmol/L (136-145)
[2017-11-22 07:46] LABS: ALK PHOS 54 U/L (45-117); BILIRUBIN,TOTAL 0.7 mg/dL (0.2-1.0); CREATININE 0.7 mg/dL (0.7-1.3); PHOSPHOROUS 2.6 mg/dL (2.5-4.9); SGPT/ALT 28 U/L (12-78); TOT PROT 4.9 g/dl (6.4-8.2)
[2017-11-22] MEDS: oxyCODONE HCL 5 MG TABLET PO PRN ×3 (09:00→22:11)
[2017-11-22] MEDS: KETOROLAC TROMETHAMINE 15 MG/ML VIAL IVPB SCH ×2 (11:58→22:09)
--- NOTE | 2017-11-22 13:36 | PN ---
Physical Exam: SUBJECTIVE: Patient seen and examined at the bedside. Pain is currently controlled, no acute distress. OBJECTIVE: dressing dry, intact, minimally serosang drainage noted, no aidan bleeding Coumadin on hold since 11/19 s/p surgery. As per surgery note, hold coumadin x 72 hours (11/19>11/22) INR now Vital Signs Period Temp Pulse Resp BP Sys/De La Vega Pulse Ox Last 24 Hr 97.6 F-98.5 F 87-115 18-20 117-130/73-93 95 GENERAL: The patient is awake, alert, and fully oriented, in no acute distress. HEAD: Normal with no signs of trauma. EYES: PERRL, extraocular movements intact, sclera anicteric, conjunctiva clear. No ptosis. ENT: Ears normal, nares patent, oropharynx clear without exudates NECK: Trachea midline, full range of motion, supple. LUNGS: Breath sounds equal, mild wheezing on right upper lobe, tolerating room air HEART: Regular rate and rhythm, S1, S2 without murmur, rub or gallop. ABDOMEN: Soft, nontender, nondistended, normoactive bowel sounds, no guarding, no rebound, no hepatosplenomegaly, no masses. EXTREMITIES: no edema. NEUROLOGICAL: Normal speech, gait not observed. PSYCH: Normal mood, normal affect. SKIN: back surgical dressing intact Laboratory Results - last 24 hr 11/21/17 11/21/17 11/22/17 16:30 17:54 06:00 WBC 11.0 H 9.5 RBC 3.17 L 3.05 L Hgb 10.1 L 9.7 L Hct 30.0 L 29.1 L MCV 94.6 95.6 MCH 31.8 31.7 MCHC 33.6 33.2 RDW 14.3 14.2 Plt Count 93 L 90 L MPV 10.3 9.9 Absolute Neuts (auto) 7.9 Neutrophils % 82.5 Lymphocytes % 8.2 D Monocytes % 8.0 Eosinophils % 0.9 D Basophils % 0.4 Nucleated RBC % 0 Sodium Potassium Chloride Carbon Dioxide Anion Gap BUN Creatinine Creat Clearance w eGFR POC Glucometer 116 Random Glucose Calcium Phosphorus Total Bilirubin AST ALT Alkaline Phosphatase Total Protein Albumin 11/22/17 06:00 WBC RBC Hgb Hct MCV MCH MCHC RDW Plt Count MPV Absolute Neuts (auto) Neutrophils % Lymphocytes % Monocytes % Eosinophils % Basophils % Nucleated RBC % Sodium 141 Potassium 4.0 Chloride 105 Carbon Dioxide 30 Anion Gap 6 L BUN 19 H Creatinine 0.7 Creat Clearance w eGFR > 60 POC Glucometer Random Glucose 108 H Calcium 8.1 L Phosphorus 2.6 Total Bilirubin 0.7 AST 52 H D ALT 28 Alkaline Phosphatase 54 Total Protein 4.9 L Albumin 2.4 L Active Medications Generic Name Dose Route Start Last Admin Trade Name Freq PRN Reason Stop Dose Admin Albuterol Sulfate 1 amp 11/21/17 17:56 Ventolin 0.083% Nebulizer Soln - NEB Q4H PRN SHORT OF BREATH/WHEEZING Lactated Ringer's 1,000 mls @ 75 mls/hr 11/20/17 22:23 11/22/17 01:44 Lactated Ringers Solution IV 75 mls/hr ASDIR VALERIANO Administration Ketorolac Tromethamine 15 mg 11/21/17 10:00 11/22/17 11:58 Toradol Injection - IVPB 11/26/17 09:59 15 mg BID VALERIANO Administration Lorazepam 1 mg 11/20/17 22:23 11/21/17 13:17 Ativan Injection - IVPUSH 1 mg Q8H PRN Administration BACK PAIN Losartan Potassium 100 mg 11/21/17 22:00 11/21/17 21:20 Cozaar - PO 100 mg HS VALERIANO Administration Metoprolol Tartrate 50 mg 11/21/17 22:00 11/21/17 21:20 Lopressor - PO 50 mg HS VALERIANO Administration Ondansetron HCl 4 mg 11/20/17 22:23 Zofran Injection IVPUSH Q6H PRN NAUSEA AND/OR VOMITING Oxycodone HCl 20 mg 11/21/17 07:48 11/22/17 09:00 Roxicodone - PO 20 mg Q6H PRN Administration PAIN LEVEL 4 - 6 ASSESSMENT/PLAN: Patient is a 77 year old male who is s/p day #[address] Tariq. Surgery POD #3 ERLIN L2-S1, inspection of fusion mass, revision laminectomies L2-S1, T6-L1 SPO's , T6-pelvis PISF, Lumbo-pelvic fixation, Bone autograft and bone allograft Had acute episode of bleeding yesterday which has since resolved, seen by surgery post episode. Dressing clean/dry and intact with scant amount of sero sang drainage. No aidan bleeding noted. Pain controlled. bowel regimen. Monitor for any further signs of bleeding. Patient coumadin on hold x 72 hours. Surgery to give clearance prior to restarting of coumadin. Incentive spirometer encouraged. Card: Hypertension, controlled> On cozaar and Lopressor. Afib, on coumadin Currently on hold x 72 hrs per surgery, however had acute bleeding episode yesterday FEN on LR @ 75 monitor electrolyes regular soft diet Prophy Coumadin on hold until cleared by surgery Disposition: full code
[2017-11-22] MEDS ORDERED: SENNOSIDES 8.6MG TABLET (FP) PO PRN (13:59)
[2017-11-22] MEDS ORDERED: oxyCODONE HCL 5 MG TABLET PO ONE (14:19)
[2017-11-22] MEDS: DOCUSATE SODIUM 100 MG CAPSULE (FP) PO SCH ×2 (14:29→22:09)
[2017-11-22] MEDS ORDERED: POLYETHYLENE GLYCOL 3350 119 GM BTL PO ONE (14:30)
--- NOTE | 2017-11-22 17:38 | PATH ---
Surgical Pathology Report Patient Name: MELISA URIAS Med. Rec. #: [id number] /Age/Gender: 1940 (Age: 77) / M Account: [id number] Location: [facility] MED/SURG Taken: 11/19/2017 Received: 11/20/2017 Reported: 11/22/2017 Physicians: Say Tariq M.D. Specimen(s) Received A: OLD HARDWARE LEFT B: OLD HARDWARE RIGHT Clinical History Postural kyphosis Final Diagnosis A. OLD HARDWARE LEFT, REMOVAL: MEDICAL HARDWARE, GROSS EXAMINATION ONLY. B. OLD HARDWARE RIGHT, REMOVAL: MEDICAL HARDWARE, GROSS EXAMINATION ONLY. Electronically Signed Maicol Lal M.D. Gross Description A. Received fresh labeled "old hardware left," is a 14.5 cm in length padgett metallic, bent qiana. Also received within the same container are 11 padgett metallic screws ranging from 5.5-6.0 cm in length. No soft tissue is present. No sections are submitted, gross only. B. Received fresh labeled "old hardware right," is a 16 cm in length padgett metallic, bent qiana. Also received within the same container are 10 padgett metallic screws averaging 0.4 cm in length and 0.9 cm in diameter. There are 3 yellow metallic portions of hardware also received within the same container ranging from 5.3-6.8 cm in greatest dimension. No soft tissue is present. No sections are submitted, gross only. DL/11/20/2017 saudi/11/20/2017
[2017-11-22 22:04] LABS: PROTHROMBIN TIME (PATIENT) 11.3 SEC (9.7-13.0)
[2017-11-22] MEDS: METOPROLOL TARTRATE 50 MG TABLET (FP) PO SCH (22:09)
[2017-11-22] MEDS: LOSARTAN POTASSIUM 50 MG TABLET (FP) PO SCH (22:09)
[2017-11-22] MEDS: LORazepam 2 MG/ML SDV VIAL IVPUSH PRN (22:11)
[2017-11-23] MEDS: LACTATED RINGERS SOLUTION 1,000 ML IV SCH ×2 (02:04→22:05)
--- NOTE | 2017-11-23 04:58 | FALL ---
Fall Exam - Event Witnessed fall: No Location of Fall: Patient Room Fall from: Bed - Pre-Fall Mental Status: Alert Current Medications: Current Medications Generic Name Dose Route Start Last Admin Trade Name Freluis eduardo PRN Reason Stop Dose Admin Albuterol Sulfate 1 amp 11/21/17 17:56 Ventolin 0.083% Nebulizer Soln - NEB Q4H PRN SHORT OF BREATH/WHEEZING Docusate Sodium 100 mg 11/22/17 14:30 11/22/17 22:09 Colace - PO 100 mg TID VALERIANO Administration Lactated Ringer's 1,000 mls @ 75 mls/hr 11/20/17 22:23 11/22/17 01:44 Lactated Ringers Solution IV 75 mls/hr ASDIR VALERIANO Administration Ketorolac Tromethamine 15 mg 11/21/17 10:00 11/22/17 22:09 Toradol Injection - IVPB 11/26/17 09:59 15 mg BID VALERIANO Administration Lorazepam 1 mg 11/20/17 22:23 11/22/17 22:11 Ativan Injection - IVPUSH 1 mg Q8H PRN Administration BACK PAIN Losartan Potassium 100 mg 11/21/17 22:00 11/22/17 22:09 Cozaar - PO 100 mg HS VALERIANO Administration Metoprolol Tartrate 50 mg 11/21/17 22:00 11/22/17 22:09 Lopressor - PO 50 mg HS VALERIANO Administration Ondansetron HCl 4 mg 11/20/17 22:23 Zofran Injection IVPUSH Q6H PRN NAUSEA AND/OR VOMITING Oxycodone HCl 20 mg 11/21/17 07:48 11/22/17 22:11 Roxicodone - PO 20 mg Q6H PRN Administration PAIN LEVEL 4 - 6 Senna 2 tab 11/22/17 13:59 11/22/17 22:09 Senna - PO 2 tab HS PRN Administration CONSTIPATION - Post-Fall Patient Outcome: No Injury Exam Findings: AAOx3, Normocephalic, no head tauma. PERRL, +EOMs, S1S2, CTAB, + surgical dressing to lumbar intact. +TN to lumbar region- unchanged, ABD soft, non-tender. No pelvic/ No Hip pain, FROM of extremities. Treatment: Ice Pack Vital Signs: Vital Signs Temperature 98.8 F 11/22/17 21:00 Pulse Rate 102 H 11/22/17 21:00 Respiratory Rate 20 11/22/17 21:00 Blood Pressure 150/89 11/22/17 21:00 O2 Sat by Pulse Oximetry (%) 97 11/22/17 21:00 LOC Post-Fall: Unchanged Identify factors for HIGH RISK for Head Injury: Pt on anticoagulant
[2017-11-23] MEDS: DOCUSATE SODIUM 100 MG CAPSULE (FP) PO SCH ×3 (06:05→21:57)
--- NOTE | 2017-11-23 08:38 | HOSP ---
Subjective - Review of Symptoms Events since last encounter: Hospitalist Encounter Notified by RN that the patient was found on the floor in a kneeling position Arrived to bedside, patient is lying supine in bed, reports having back pain, unclear if he hit his head. See PE Will order Head CT for unwitnessed fall, recent anticoagulant use- held recently secondary to bleeding to surgical site Icepack ordered Continue with current regimen Will have Day provider FU with Head CT Condition stable Musculoskeletal: Yes: Back Pain Physical Examination Vital Signs: Vital Signs Temperature 98.8 F 11/23/17 06:58 Pulse Rate 104 H 11/23/17 06:58 Respiratory Rate 20 11/23/17 06:58 Blood Pressure 149/76 11/23/17 06:58 O2 Sat by Pulse Oximetry (%) 97 11/22/17 21:00 Constitutional: Yes: Well Nourished, No Distress, Calm Eyes: Yes: Conjunctiva Clear, EOM Intact, PERRL HENT: Yes: WNL, Atraumatic, Normocephalic Neck: Yes: WNL, Supple, Trachea Midline Cardiovascular: Yes: WNL, Regular Rate and Rhythm, S1, S2 Respiratory: Yes: WNL, Regular, CTA Bilaterally Gastrointestinal: Yes: WNL, Normal Bowel Sounds, Soft ...Rectal Exam: Yes: Deferred Renal/: Yes: WNL Breast(s): Yes: WNL Musculoskeletal: Yes: Back Pain Extremities: Yes: Erythema (R- anterior aspect of knee) Edema: No Peripheral Pulses WNL: Yes Integumentary: Yes: Erythema (right knee) Wound/Incision: Yes: Dressing Dry and Intact (lumbar aspect) Neurological: Yes: WNL, Alert, Oriented, Cran Nerves II-XII Intact ...Motor Strength: WNL Psychiatric: Yes: WNL, Alert, Oriented Labs: CBC, BMP 11/22/17 06:00 11/22/17 06:00 Laboratory Results - last 24 hr 11/22/17 20:30 PT with INR 11.30 INR 1.00 Current Medications Generic Name Dose Route Start Last Admin Trade Name Freq PRN Reason Stop Dose Admin Albuterol Sulfate 1 amp 11/21/17 17:56 Ventolin 0.083% Nebulizer Soln - NEB Q4H PRN SHORT OF BREATH/WHEEZING Docusate Sodium 100 mg 11/22/17 14:30 11/23/17 06:05 Colace - PO 100 mg TID VALERIANO Administration Lactated Ringer's 1,000 mls @ 75 mls/hr 11/20/17 22:23 11/23/17 02:04 Lactated Ringers Solution IV 75 mls/hr ASDIR VALERIANO Administration Ketorolac Tromethamine 15 mg 11/21/17 10:00 11/22/17 22:09 Toradol Injection - IVPB 11/26/17 09:59 15 mg BID VALERIANO Administration Lorazepam 1 mg 11/20/17 22:23 11/22/17 22:11 Ativan Injection - IVPUSH 1 mg Q8H PRN Administration BACK PAIN Losartan Potassium 100 mg 11/21/17 22:00 11/22/17 22:09 Cozaar - PO 100 mg HS VALERIANO Administration Metoprolol Tartrate 50 mg 11/21/17 22:00 11/22/17 22:09 Lopressor - PO 50 mg HS VALERIANO Administration Ondansetron HCl 4 mg 11/20/17 22:23 Zofran Injection IVPUSH Q6H PRN NAUSEA AND/OR VOMITING Oxycodone HCl 20 mg 11/21/17 07:48 11/22/17 22:11 Roxicodone - PO 20 mg Q6H PRN Administration PAIN LEVEL 4 - 6 Senna 2 tab 11/22/17 13:59 11/22/17 22:09 Senna - PO 2 tab HS PRN Administration CONSTIPATION
[2017-11-23 10:17] LABS: EOS % 3.2 % (0-4.5); HEMATOCRIT 28.5 % (35.4-49); HEMOGLOBIN 9.6 GM/dL (11.7-16.9); LYMPH % 9.8 % (8-40); MCH 31.8 pg (25.7-33.7); MCHC 33.6 g/dl (32.0-35.9); MEAN CELL VOLUME 94.4 fl (80-96); MEAN PLT VOLUME 9.3 fl (7.5-11.1); MONO % 8.6 % (3.8-10.2); NEUT % 77.4 % (42.8-82.8); PLATELET COUNT 137 K/MM3 (134-434); RBC 3.01 M/mm3 (4.00-5.60); RDW 14.4 % (11.9-15.9); WHITE BLOOD COUNT 7.8 K/mm3 (4.0-10.0)
[2017-11-23 10:51] LABS: ALBUMIN 2.6 g/dl (3.4-5.0); ANION GAP 7 (8-16); BILIRUBIN,TOTAL 0.9 mg/dL (0.2-1.0); BLOOD UREA NITROGEN 17 mg/dL (7-18); CHLORIDE 106 mmol/L (98-107); CO2 29 mmol/L (21-32); CREATININE 0.8 mg/dL (0.7-1.3); GLUCOSE,RANDOM 125 mg/dL (74-106); POTASSIUM 3.8 mmol/L (3.5-5.1); SGOT/AST 40 U/L (15-37); SGPT/ALT 27 U/L (12-78); SODIUM 142 mmol/L (136-145); TOT PROT 5.3 g/dl (6.4-8.2)
[2017-11-23 10:52] LABS: ALK PHOS 62 U/L (45-117)
[2017-11-23] MEDS: KETOROLAC TROMETHAMINE 15 MG/ML VIAL IVPB SCH ×2 (11:54→22:03)
[2017-11-23] MEDS: ENOXAPARIN NA (PORCINE) 40 MG/0.4 ML DISP.SYRIN SQ SCH (11:54)
[2017-11-23] MEDS: oxyCODONE HCL 5 MG TABLET PO PRN ×2 (13:30→22:25)
[2017-11-23] MEDS ORDERED: METOPROLOL TARTRATE 25 MG TABLET (FP) PO ONE (16:51)
[2017-11-23] MEDS: POLYETHYLENE GLYCOL 3350 119 GM BTL PO SCH (17:18)
[2017-11-23] MEDS: WARFARIN NA 10 MG TABLET (FP) PO SCH (17:18)
--- NOTE | 2017-11-23 17:57 | PN ---
Physical Exam: SUBJECTIVE: Patient seen and examined at the bedside. OBJECTIVE: Fell last night, Head Ct negative Discussed with Dr. Tariq, surgery. OK to re start anticoagulation for atrial fibrillation, however give only Lovenox prophylactic dose and restart Coumadin. Concern for acute bleeding episode that patient had post surgery Vital Signs Period Temp Pulse Resp BP Sys/De La Vega Pulse Ox Last 24 Hr 97.4 F-99.6 F 94-112 18-20 118-158/66-107 97-97 GENERAL: The patient is awake, alert, and fully oriented, in no acute distress. HEAD: Normal with no signs of trauma. EYES: PERRL, extraocular movements intact, sclera anicteric, conjunctiva clear. No ptosis. ENT: Ears normal, nares patent, oropharynx clear without exudates NECK: Trachea midline, full range of motion, supple. LUNGS: Breath sounds equal, mild wheezing on right upper lobe, tolerating room air HEART: Regular rate and rhythm, S1, S2 without murmur, rub or gallop. ABDOMEN: Soft, nontender, nondistended, normoactive bowel sounds, no guarding, no rebound, no hepatosplenomegaly, no masses. EXTREMITIES: no edema. NEUROLOGICAL: Normal speech, gait not observed. PSYCH: Normal mood, normal affect. SKIN: back surgical dressing intact Laboratory Results - last 24 hr 11/22/17 11/23/17 11/23/17 20:30 10:06 10:06 WBC 7.8 RBC 3.01 L Hgb 9.6 L Hct 28.5 L MCV 94.4 MCH 31.8 MCHC 33.6 RDW 14.4 Plt Count 137 D MPV 9.3 Absolute Neuts (auto) 6.0 Neutrophils % 77.4 Lymphocytes % 9.8 Monocytes % 8.6 Eosinophils % 3.2 D Basophils % 1.0 Nucleated RBC % 0 PT with INR 11.30 INR 1.00 Sodium 142 Potassium 3.8 Chloride 106 Carbon Dioxide 29 Anion Gap 7 L BUN 17 Creatinine 0.8 Creat Clearance w eGFR > 60 Random Glucose 125 H Calcium 8.0 L Magnesium 2.0 Total Bilirubin 0.9 AST 40 H D ALT 27 Alkaline Phosphatase 62 Total Protein 5.3 L Albumin 2.6 L Active Medications Generic Name Dose Route Start Last Admin Trade Name Freq PRN Reason Stop Dose Admin Albuterol Sulfate 1 amp 11/21/17 17:56 Ventolin 0.083% Nebulizer Soln - NEB Q4H PRN SHORT OF BREATH/WHEEZING Docusate Sodium 100 mg 11/22/17 14:30 11/23/17 13:30 Colace - PO 100 mg TID VALERIANO Administration Enoxaparin Sodium 40 mg 11/23/17 11:30 11/23/17 11:54 Lovenox - SQ 40 mg DAILY VALERIANO Administration Lactated Ringer's 1,000 mls @ 75 mls/hr 11/20/17 22:23 11/23/17 02:04 Lactated Ringers Solution IV 75 mls/hr ASDIR VALERIANO Administration Ketorolac Tromethamine 15 mg 11/21/17 10:00 11/23/17 11:54 Toradol Injection - IVPB 11/26/17 09:59 15 mg BID VALERIANO Administration Lorazepam 1 mg 11/20/17 22:23 11/22/17 22:11 Ativan Injection - IVPUSH 1 mg Q8H PRN Administration BACK PAIN Losartan Potassium 100 mg 11/21/17 22:00 11/22/17 22:09 Cozaar - PO 100 mg HS VALERIANO Administration Metoprolol Tartrate 50 mg 11/21/17 22:00 11/22/17 22:09 Lopressor - PO 50 mg HS VALERIANO Administration Ondansetron HCl 4 mg 11/20/17 22:23 11/23/17 17:17 Zofran Injection IVPUSH 4 mg Q6H PRN Administration NAUSEA AND/OR VOMITING Oxycodone HCl 20 mg 11/21/17 07:48 11/23/17 13:30 Roxicodone - PO 20 mg Q6H PRN Administration PAIN LEVEL 4 - 6 Polyethylene Glycol 17 gm 11/23/17 17:00 11/23/17 17:18 Miralax (For Daily Use) - PO 17 grams DAILY VALERIANO Administration Senna 2 tab 11/22/17 13:59 11/22/17 22:09 Senna - PO 2 tab HS PRN Administration CONSTIPATION Warfarin Sodium 10 mg 11/23/17 18:00 11/23/17 17:18 Coumadin - PO 10 mg DAILY@1800 VALERIANO Administration ASSESSMENT/PLAN: Patient is a 77 year old male who is s/p day #4back surgery with Dr. Tariq. Surgery POD #4 ERLIN L2-S1, inspection of fusion mass, revision laminectomies L2-S1, T6-L1 SPO's , T6-pelvis PISF, Lumbo-pelvic fixation, Bone autograft and bone allograft Had acute episode of bleeding yesterday which has since resolved, seen by surgery post episode. Dressing clean/dry and intact with scant amount of sero sang drainage. No aidan bleeding noted. Pain controlled. bowel regimen. Monitor for any further signs of bleeding. Patient coumadin on hold x 72 hours, restart today. Discussed with Dr. Tariq who recommends patient to get prophylactic dose Lovenox and Coumadin. Did not want patient on full Lovenox anticoagulation as patient had recent surgery and can have another bleeding episodes. Card: Hypertension, controlled> On cozaar and Lopressor. Afib, on coumadin Currently on hold x 72 hrs per surgery, however had acute bleeding episode yesterday FEN on LR @ 75 monitor electrolytes regular soft diet Prophy Lovenox daily and Coumadin restart Disposition: full code Visit type - Emergency Visit Emergency Visit: Yes ED Registration Date: 11/19/17 Care time: The patient presented to the Emergency Department on the above date and was hospitalized for further evaluation of their emergent condition. - New Patient This patient is new to me today: No - Critical Care Critical Care patient: No - Discharge Referral Referred to [facility] Med [facility].C[facility] No
[2017-11-23] MEDS: LOSARTAN POTASSIUM 50 MG TABLET (FP) PO SCH (21:58)
[2017-11-23] MEDS: METOPROLOL TARTRATE 50 MG TABLET (FP) PO SCH (21:58)
[2017-11-24] MEDS: DOCUSATE SODIUM 100 MG CAPSULE (FP) PO SCH ×3 (05:57→21:46)
[2017-11-24] MEDS: oxyCODONE HCL 5 MG TABLET PO PRN ×3 (05:57→19:40)
[2017-11-24] MEDS: POLYETHYLENE GLYCOL 3350 119 GM BTL PO SCH (09:49)
[2017-11-24] MEDS: ENOXAPARIN NA (PORCINE) 40 MG/0.4 ML DISP.SYRIN SQ SCH (09:49)
[2017-11-24] MEDS: KETOROLAC TROMETHAMINE 15 MG/ML VIAL IVPB SCH ×2 (10:03→21:46)
[2017-11-24] MEDS ORDERED: BISACODYL 5 MG TABLET.DR (FP) PO ONE (10:24)
[2017-11-24] MEDS ORDERED: BISACODYL 10 MG SUPP.RECT PR ONE (10:24)
[2017-11-24 10:36] LABS: BASO % 1.3 % (0-2.0); EOS % 3.8 % (0-4.5); HEMATOCRIT 29.9 % (35.4-49); HEMOGLOBIN 9.9 GM/dL (11.7-16.9); LYMPH % 13.5 % (8-40); MCH 31.4 pg (25.7-33.7); MEAN PLT VOLUME 9.4 fl (7.5-11.1); MONO % 10.1 % (3.8-10.2); NEUT % 71.3 % (42.8-82.8); PLATELET COUNT 156 K/MM3 (134-434); RBC 3.15 M/mm3 (4.00-5.60); RDW 14.2 % (11.9-15.9); WHITE BLOOD COUNT 7.1 K/mm3 (4.0-10.0)
[2017-11-24 10:40] LABS: INR 1.04 (0.82-1.09); PROTHROMBIN TIME (PATIENT) 11.8 SEC (9.7-13.0)
[2017-11-24 11:03] LABS: ALBUMIN 2.7 g/dl (3.4-5.0); ALK PHOS 66 U/L (45-117); ANION GAP 7 (8-16); BILIRUBIN,TOTAL 0.9 mg/dL (0.2-1.0); BLOOD UREA NITROGEN 15 mg/dL (7-18); CHLORIDE 102 mmol/L (98-107); CO2 31 mmol/L (21-32); CREATININE 0.8 mg/dL (0.7-1.3); GLUCOSE,RANDOM 122 mg/dL (74-106); POTASSIUM 3.9 mmol/L (3.5-5.1); SGOT/AST 35 U/L (15-37); SGPT/ALT 28 U/L (12-78); SODIUM 140 mmol/L (136-145); TOT PROT 5.5 g/dl (6.4-8.2)
[2017-11-24] MEDS ORDERED: PT OWN MED DRAWER 7, Y5N ONE (11:03)
[2017-11-24 12:03] LABS: ANISOCYTOSIS 1+; MACROCYTOSIS 1+; PLATELET ESTIMATE NORMAL
--- NOTE | 2017-11-24 12:19 | PN ---
Physical Exam: SUBJECTIVE: Patient seen and examined at the bedside. OBJECTIVE: Patient alert and oriented and answers questions appropriately. Has episodes of confusion overnight, secondary to high doses of oxycodone. Will decrease dose and monitor mental status. INR 1.04 Vital Signs Period Temp Pulse Resp BP Sys/De La Vega Pulse Ox Last 24 Hr 97.6 F-99.6 F 99-112 18-20 118-178/70-107 95-97 GENERAL: The patient is awake, alert, and fully oriented, in no acute distress. HEAD: Normal with no signs of trauma. EYES: PERRL, extraocular movements intact, sclera anicteric, conjunctiva clear. No ptosis. ENT: Ears normal, nares patent, oropharynx clear without exudates NECK: Trachea midline, full range of motion, supple. LUNGS: Breath sounds equal, mild wheezing on right upper lobe, tolerating room air HEART: Regular rate and rhythm, S1, S2 without murmur, rub or gallop. ABDOMEN: Soft, nontender, nondistended, normoactive bowel sounds, no guarding, no rebound, no hepatosplenomegaly, no masses. EXTREMITIES: no edema. NEUROLOGICAL: Normal speech, gait not observed. PSYCH: Normal mood, normal affect. SKIN: back surgical dressing intact Laboratory Results - last 24 hr 11/24/17 11/24/17 11/24/17 09:50 09:50 09:50 WBC 7.1 RBC 3.15 L Hgb 9.9 L Hct 29.9 L MCV 95.0 MCH 31.4 MCHC 33.0 RDW 14.2 Plt Count 156 MPV 9.4 Absolute Neuts (auto) 5.1 Neutrophils % 71.3 Neutrophils % (Manual) 71.0 Band Neutrophils % 0.0 Lymphocytes % 13.5 D Lymphocytes % (Manual) 11.0 Monocytes % 10.1 Monocytes % (Manual) 10 Eosinophils % 3.8 Eosinophils % (Manual) 4.0 Basophils % 1.3 Basophils % (Manual) 1.0 Myelocytes % (Man) 3 H Promyelocytes % (Man) 0 Blast Cells % (Manual) 0 Nucleated RBC % 0 Metamyelocytes 0 Platelet Estimate Normal Polychromasia 1+ Anisocytosis 1+ Macrocytosis 1+ PT with INR 11.80 INR 1.04 Sodium 140 Potassium 3.9 Chloride 102 Carbon Dioxide 31 Anion Gap 7 L BUN 15 Creatinine 0.8 Creat Clearance w eGFR > 60 POC Glucometer Random Glucose 122 H Calcium 8.0 L Total Bilirubin 0.9 AST 35 ALT 28 Alkaline Phosphatase 66 Total Protein 5.5 L Albumin 2.7 L 11/24/17 11:34 WBC RBC Hgb Hct MCV MCH MCHC RDW Plt Count MPV Absolute Neuts (auto) Neutrophils % Neutrophils % (Manual) Band Neutrophils % Lymphocytes % Lymphocytes % (Manual) Monocytes % Monocytes % (Manual) Eosinophils % Eosinophils % (Manual) Basophils % Basophils % (Manual) Myelocytes % (Man) Promyelocytes % (Man) Blast Cells % (Manual) Nucleated RBC % Metamyelocytes Platelet Estimate Polychromasia Anisocytosis Macrocytosis PT with INR INR Sodium Potassium Chloride Carbon Dioxide Anion Gap BUN Creatinine Creat Clearance w eGFR POC Glucometer 151 Random Glucose Calcium Total Bilirubin AST ALT Alkaline Phosphatase Total Protein Albumin Active Medications Generic Name Dose Route Start Last Admin Trade Name Freq PRN Reason Stop Dose Admin Albuterol Sulfate 1 amp 11/21/17 17:56 11/24/17 06:45 Ventolin 0.083% Nebulizer Soln - NEB 1 amp Q4H PRN Administration SHORT OF BREATH/WHEEZING Docusate Sodium 100 mg 11/22/17 14:30 11/24/17 05:57 Colace - PO 100 mg TID VALERIANO Administration Enoxaparin Sodium 40 mg 11/23/17 11:30 11/24/17 09:49 Lovenox - SQ 40 mg DAILY VALERIANO Administration Ketorolac Tromethamine 15 mg 11/21/17 10:00 11/24/17 10:03 Toradol Injection - IVPB 11/26/17 09:59 15 mg BID VALERIANO Administration Losartan Potassium 100 mg 11/21/17 22:00 11/23/17 21:58 Cozaar - PO 100 mg HS VALERIANO Administration Metoprolol Tartrate 50 mg 11/21/17 22:00 11/23/17 21:58 Lopressor - PO 50 mg HS VALERIANO Administration Ondansetron HCl 4 mg 11/20/17 22:23 11/23/17 17:17 Zofran Injection IVPUSH 4 mg Q6H PRN Administration NAUSEA AND/OR VOMITING Oxycodone HCl 10 mg 11/24/17 09:07 Roxicodone - PO Q4H PRN PAIN LEVEL 7 - 10 Polyethylene Glycol 17 gm 11/23/17 17:00 11/24/17 09:49 Miralax (For Daily Use) - PO 17 grams DAILY VALERIANO Administration Senna 2 tab 11/22/17 13:59 11/22/17 22:09 Senna - PO 2 tab HS PRN Administration CONSTIPATION Warfarin Sodium 10 mg 11/23/17 18:00 11/23/17 17:18 Coumadin - PO 10 mg DAILY@1800 VALERIANO Administration ASSESSMENT/PLAN: Patient is a 77 year old male who is s/p day #[address] Tariq. Patient had an unwitnessed fall on 11/23/2017. Surgery POD #5 ERLIN L2-S1, inspection of fusion mass, revision laminectomies L2-S1, T6-L1 SPO's , T6-pelvis PISF, Lumbo-pelvic fixation, Bone autograft and bone allograft Dressing clean/dry and intact with scant amount of sero sang drainage. No aidan bleeding noted. Pain controlled. bowel regimen. Monitor for any further signs of bleeding. Coumadin restarted on 11/14 with Lovenox 40mg daily. Discussed with Dr Tariq who recommends patient to get prophylactic dose Lovenox and Coumadin as he is high risk for bleeding into his spine s/p surgery. Surgeon advised against full Lovenox anticoagulation as patient had recent surgery with an acute bleeding episode post op. Card: Hypertension, controlled> On cozaar and Lopressor. Afib, on coumadin On Lovenox 40mg daily and Coumadin 10mg @ hs. Monitor INR. FEN tolerating PO monitor electrolyes regular soft diet Prophy Lovenox daily and Coumadin restart Disposition: full code, likely discharge to rehab. Visit type - Emergency Visit Emergency Visit: Yes ED Registration Date: 11/19/17 Care time: The patient presented to the Emergency Department on the above date and was hospitalized for further evaluation of their emergent condition. - New Patient This patient is new to me today: No - Critical Care Critical Care patient: No - Discharge Referral Referred to [facility] Med P.C.: No
--- NOTE | 2017-11-24 17:48 | CONSULT ---
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 Chronic LB pain s/p LS laminectomy and fusion 03/12 without benefit. Now admitted for revision and T6-Pelvic instrumentation. Post-op hematuria and bleeding from his wound are noted. Post-op the patient has been confused and fell. CT of head x2 on 03/25 (both reviewed): Mild atrophy. 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 Confusion improved when Oxycodone was reduced from 20 mg q 4 hrs to 10 mg q 4 hrs. SUNIL: Pt resting in Bed in NAD Long midline spinal wound is bandaged. Neck supple. No bruits. Cor irreg/irrreg. NEURO: Still slightly confused and slow to respond but Ox3 Speech fluent. CN II-XII: normal Motor: No drift. Normal strength throughout. Areflexic in the legs. Toes are downgoing. Coord: No FTN dystaxia Sensory: Normal Gait: sl shuffle but no asymmetry. Pt. elevates on heals and toes ( walking is without obvious discomfort.) IMP: Mild, B/L cerebral dysfunction. May be due to old strokes/microvascular disease. Transient confusion most likely due to toxic-metabolic encephalopathy ( Narcotics +/- infection) SUGGEST: Check B12, TSH, U/A, C&S. Use lowest doses of analgesics required (also try q 6 hrs rather than q 4 hrs). R/O occult infection. Mobilize OOB to chair and begin PT for gait with walker. Thank you very much, Say Francis MD
[2017-11-24] MEDS: WARFARIN NA 10 MG TABLET (FP) PO SCH (18:06)
[2017-11-24 21:34] LABS: URINE APPEARANCE CLEAR; URINE BILIRUBIN NEGATIVE (<2.0 mg/dL); URINE COLOR YELLOW; URINE GLUCOSE (UA) NEGATIVE (NEGATIVE); URINE KETONE NEGATIVE (NEGATIVE); URINE LEUK ESTERASE NEGATIVE (NEGATIVE); URINE NITRITE NEGATIVE (NEGATIVE); URINE PROTEIN NEGATIVE (NEGATIVE); URINE UROBILINOGEN 4.0 E.U/dl mg/dL (0.2-1.0)
[2017-11-24] MEDS: LOSARTAN POTASSIUM 50 MG TABLET (FP) PO SCH (21:46)
[2017-11-24] MEDS: METOPROLOL TARTRATE 50 MG TABLET (FP) PO SCH (21:46)
[2017-11-25] MEDS: oxyCODONE HCL 5 MG TABLET PO PRN ×4 (02:23→16:48)
[2017-11-25] MEDS: DOCUSATE SODIUM 100 MG CAPSULE (FP) PO SCH ×3 (06:00→21:54)
[2017-11-25 08:58] LABS: INR 1.47 (0.82-1.09); PROTHROMBIN TIME (PATIENT) 16.6 SEC (9.7-13.0)
[2017-11-25 10:03] LABS: POTASSIUM 3.9 mmol/L (3.5-5.1)
[2017-11-25] MEDS: KETOROLAC TROMETHAMINE 15 MG/ML VIAL IVPB SCH ×2 (10:19→10:31)
[2017-11-25] MEDS: ENOXAPARIN NA (PORCINE) 40 MG/0.4 ML DISP.SYRIN SQ SCH (10:20)
[2017-11-25] MEDS: POLYETHYLENE GLYCOL 3350 119 GM BTL PO SCH (10:21)
[2017-11-25 10:26] LABS: GLUCOSE,RANDOM 102 mg/dL (74-106)
[2017-11-25 10:27] LABS: ALBUMIN 2.7 g/dl (3.4-5.0); ANION GAP 8 (8-16); BILIRUBIN,TOTAL 0.7 mg/dL (0.2-1.0); BLOOD UREA NITROGEN 13 mg/dL (7-18); CALCIUM 8.2 mg/dL (8.5-10.1); CHLORIDE 103 mmol/L (98-107); CO2 29 mmol/L (21-32); CREATININE 0.7 mg/dL (0.7-1.3); MAGNESIUM 1.9 mg/dL (1.8-2.4); SODIUM 140 mmol/L (136-145); TOT PROT 5.5 g/dl (6.4-8.2)
[2017-11-25 10:28] LABS: ALK PHOS 67 U/L (45-117); SGOT/AST 30 U/L (15-37); SGPT/ALT 28 U/L (12-78)
[2017-11-25] MEDS: KETOROLAC TROMETHAMINE 10 MG TABLET PO SCH ×2 (12:20→18:18)
[2017-11-25] MEDS: WARFARIN NA 10 MG TABLET (FP) PO SCH (18:21)
--- NOTE | 2017-11-25 18:37 | PN ---
Physical Exam: SUBJECTIVE: Patient seen and examined at the bedside. Feels better today, not confused. OBJECTIVE: Vital Signs Period Temp Pulse Resp BP Sys/De La Vega Pulse Ox Last 24 Hr 97.5 F-99.2 F 91-105 18-20 105-144/62-97 95-99 GENERAL: The patient is awake, alert, and fully oriented, in no acute distress. HEAD: Normal with no signs of trauma. EYES: PERRL, extraocular movements intact, sclera anicteric, conjunctiva clear. No ptosis. ENT: Ears normal, nares patent, oropharynx clear without exudates NECK: Trachea midline, full range of motion, supple. LUNGS: Breath sounds equal, mild wheezing on right upper lobe, tolerating room air HEART: Regular rate and rhythm, S1, S2 without murmur, rub or gallop. ABDOMEN: Soft, nontender, nondistended, normoactive bowel sounds, no guarding, no rebound, no hepatosplenomegaly, no masses. EXTREMITIES: no edema. NEUROLOGICAL: Normal speech, gait not observed. PSYCH: Normal mood, normal affect. SKIN: back surgical dressing intact, clean, dry Laboratory Results - last 24 hr 11/24/17 11/25/17 11/25/17 17:33 07:00 08:20 PT with INR 16.60 H INR 1.47 H D Sodium 140 Potassium 3.9 Chloride 103 Carbon Dioxide 29 Anion Gap 8 BUN 13 Creatinine 0.7 Creat Clearance w eGFR > 60 Random Glucose 102 Calcium 8.2 L Magnesium 1.9 Total Bilirubin 0.7 AST 30 ALT 28 Alkaline Phosphatase 67 Total Protein 5.5 L Albumin 2.7 L Vitamin B12 1015 H TSH 1.24 D Urine Color Yellow Urine Appearance Clear Urine pH 6.0 Ur Specific [place] 1.015 Urine Protein Negative Urine Glucose (UA) Negative Urine Ketones Negative Urine Blood Negative Urine Nitrite Negative Urine Bilirubin Negative Urine Urobilinogen 4.0 e.u/dl Ur Leukocyte Esterase Negative 11/25/17 09:40 PT with INR INR Sodium Cancelled Potassium Cancelled Chloride Cancelled Carbon Dioxide Cancelled Anion Gap Cancelled BUN Cancelled Creatinine Cancelled Creat Clearance w eGFR Cancelled Random Glucose Cancelled Calcium Cancelled Magnesium Cancelled Total Bilirubin Cancelled AST Cancelled ALT Cancelled Alkaline Phosphatase Cancelled Total Protein Cancelled Albumin Cancelled Vitamin B12 TSH Urine Color Urine Appearance Urine pH Ur Specific [place] Urine Protein Urine Glucose (UA) Urine Ketones Urine Blood Urine Nitrite Urine Bilirubin Urine Urobilinogen Ur Leukocyte Esterase Active Medications Generic Name Dose Route Start Last Admin Trade Name Freq PRN Reason Stop Dose Admin Albuterol Sulfate 1 amp 11/21/17 17:56 11/24/17 06:45 Ventolin 0.083% Nebulizer Soln - NEB 1 amp Q4H PRN Administration SHORT OF BREATH/WHEEZING Docusate Sodium 100 mg 11/22/17 14:30 11/25/17 13:57 Colace - PO Not Given TID VALERIANO Enoxaparin Sodium 40 mg 11/23/17 11:30 11/25/17 10:20 Lovenox - SQ 40 mg DAILY VALERIANO Administration Ketorolac Tromethamine 10 mg 11/25/17 12:00 11/25/17 18:18 Toradol PO 11/30/17 11:59 Not Given Q6HPO VALERIANO Losartan Potassium 100 mg 11/21/17 22:00 11/24/17 21:46 Cozaar - PO 100 mg HS VALERIANO Administration Metoprolol Tartrate 50 mg 11/21/17 22:00 11/24/17 21:46 Lopressor - PO 50 mg HS VALERIANO Administration Ondansetron HCl 4 mg 11/20/17 22:23 11/23/17 17:17 Zofran Injection IVPUSH 4 mg Q6H PRN Administration NAUSEA AND/OR VOMITING Oxycodone HCl 20 mg 11/25/17 09:36 11/25/17 16:48 Roxicodone - PO 20 mg Q4H PRN Administration PAIN LEVEL 7 - 10 Polyethylene Glycol 17 gm 11/23/17 17:00 11/25/17 10:21 Miralax (For Daily Use) - PO Not Given DAILY VALERIANO Senna 2 tab 11/22/17 13:59 11/22/17 22:09 Senna - PO 2 tab HS PRN Administration CONSTIPATION Warfarin Sodium 10 mg 11/23/17 18:00 11/25/17 18:21 Coumadin - PO 10 mg DAILY@1800 VALERIANO Administration ASSESSMENT/PLAN: Patient is a 77 year old male who is s/p day #[address] Tariq. Patient had an unwitnessed fall on 11/23/2017. Surgery POD #6 ERLIN L2-S1, inspection of fusion mass, revision laminectomies L2-S1, T6-L1 SPO's , T6-pelvis PISF, Lumbo-pelvic fixation, Bone autograft and bone allograft Dressing clean/dry and intact with scant amount of sero sang drainage. No aidan bleeding noted. Pain controlled. bowel regimen. Monitor for any further signs of bleeding. Coumadin restarted on 11/14 with Lovenox 40mg daily. Discussed with Dr Tariq who recommends patient to get prophylactic dose Lovenox and Coumadin as he is high risk for bleeding into his spine s/p surgery. Surgeon advised against full Lovenox anticoagulation. Neuro: Acute confusion and sustained a fall without injury. Head Ct reviewed, confusion likely secondary to high dose oxycodone. Oxycodone decreased and patient's mental status improved. No signs of infection. Vitals stable, remains afebrile. Monitor. neuro notes and recommendations reviewed and appreciated. Card: Hypertension, controlled> On cozaar and Lopressor. Afib, on coumadin On Lovenox 40mg daily and Coumadin 10mg @ hs. Monitor INR. Goal inr 2-3, then can stop Lovenox. FEN tolerating PO monitor electrolyes regular soft diet Prophy Lovenox daily, on Coumadin Disposition: full code, likely discharge to rehab tomorrow. . Visit type - Emergency Visit Emergency Visit: Yes ED Registration Date: 11/19/17 Care time: The patient presented to the Emergency Department on the above date and was hospitalized for further evaluation of their emergent condition. - New Patient This patient is new to me today: No - Critical Care Critical Care patient: No - Discharge Referral Referred to [facility] Med P.C.: No
[2017-11-25] MEDS: LOSARTAN POTASSIUM 50 MG TABLET (FP) PO SCH (21:54)
[2017-11-25] MEDS: METOPROLOL TARTRATE 50 MG TABLET (FP) PO SCH (21:54)
[2017-11-26] MEDS: KETOROLAC TROMETHAMINE 10 MG TABLET PO SCH ×3 (01:00→12:26)
[2017-11-26] MEDS ORDERED: MAG HYDROX/AL HYDROX/SIMETH 30 ML UNIT-DOSE CUP PO ONE (04:54)
[2017-11-26] MEDS: DOCUSATE SODIUM 100 MG CAPSULE (FP) PO SCH ×2 (06:25→17:41)
[2017-11-26 07:27] LABS: BASO % 0.9 % (0-2.0); EOS % 4.2 % (0-4.5); HEMATOCRIT 27.6 % (35.4-49); HEMOGLOBIN 9.3 GM/dL (11.7-16.9); LYMPH % 10.1 % (8-40); MCH 31.6 pg (25.7-33.7); MCHC 33.5 g/dl (32.0-35.9); MEAN CELL VOLUME 94.4 fl (80-96); MEAN PLT VOLUME 8.8 fl (7.5-11.1); NEUT % 73.8 % (42.8-82.8); PLATELET COUNT 215 K/MM3 (134-434); RBC 2.93 M/mm3 (4.00-5.60); RDW 14.1 % (11.9-15.9); WHITE BLOOD COUNT 7.5 K/mm3 (4.0-10.0)
[2017-11-26 07:51] LABS: ALBUMIN 2.5 g/dl (3.4-5.0); ANION GAP 7 (8-16); BLOOD UREA NITROGEN 15 mg/dL (7-18); CALCIUM 7.8 mg/dL (8.5-10.1); CHLORIDE 102 mmol/L (98-107); CO2 31 mmol/L (21-32); GLUCOSE,RANDOM 103 mg/dL (74-106); SODIUM 140 mmol/L (136-145)
[2017-11-26 07:52] LABS: INR 2.17 (0.82-1.09); PROTHROMBIN TIME (PATIENT) 24.5 SEC (9.7-13.0)
[2017-11-26 07:55] LABS: ALK PHOS 63 U/L (45-117); BILIRUBIN,TOTAL 0.7 mg/dL (0.2-1.0); CREATININE 0.7 mg/dL (0.7-1.3); SGOT/AST 29 U/L (15-37); SGPT/ALT 27 U/L (12-78); TOT PROT 5.2 g/dl (6.4-8.2)
[2017-11-26] MEDS: oxyCODONE HCL 5 MG TABLET PO PRN ×3 (08:24→17:41)
--- NOTE | 2017-11-26 09:35 | PN ---
Progress Note (short form) - Note Progress Note: Subjective: The patient was seen and examined at the bedside, he states he would like to see Dr. Tariq today Current Medications Generic Name Dose Route Start Last Admin Trade Name Freq PRN Reason Stop Dose Admin Albuterol Sulfate 1 amp 11/21/17 17:56 11/24/17 06:45 Ventolin 0.083% Nebulizer Soln - NEB 1 amp Q4H PRN Administration SHORT OF BREATH/WHEEZING Docusate Sodium 100 mg 11/22/17 14:30 11/26/17 06:25 Colace - PO Not Given TID VALERIANO Enoxaparin Sodium 40 mg 11/23/17 11:30 11/26/17 10:19 Lovenox - SQ 40 mg DAILY VALERIANO Administration Ketorolac Tromethamine 10 mg 11/25/17 12:00 11/26/17 06:25 Toradol PO 11/30/17 11:59 Not Given Q6HPO VALERIANO Losartan Potassium 100 mg 11/21/17 22:00 11/25/17 21:54 Cozaar - PO 100 mg HS VALERIANO Administration Metoprolol Tartrate 50 mg 11/21/17 22:00 11/25/17 21:54 Lopressor - PO 50 mg HS VALERIANO Administration Ondansetron HCl 4 mg 11/20/17 22:23 11/23/17 17:17 Zofran Injection IVPUSH 4 mg Q6H PRN Administration NAUSEA AND/OR VOMITING Oxycodone HCl 20 mg 11/25/17 09:36 11/26/17 08:24 Roxicodone - PO 20 mg Q4H PRN Administration PAIN LEVEL 7 - 10 Polyethylene Glycol 17 gm 11/23/17 17:00 11/26/17 10:20 Miralax (For Daily Use) - PO 17 grams DAILY VALERIANO Administration Senna 2 tab 11/22/17 13:59 11/22/17 22:09 Senna - PO 2 tab HS PRN Administration CONSTIPATION Warfarin Sodium 10 mg 11/23/17 18:00 11/25/17 18:21 Coumadin - PO 10 mg DAILY@1800 VALERIANO Administration Objective Vital Signs Period Temp Pulse Resp BP Sys/De La Vega Pulse Ox Last 24 Hr 97.5 F-98.6 F 92-105 20-20 105-146/62-92 99-99 Physical Exam: General: NAD, A&Ox3 Lungs: CTA bilaterally Heart: RRR, S1S2 Abd: Soft, non-tender, non-distended Skin: Back upper dressing with dried blood Neuro: Moving all extremities spontaneously CBCD WBC 7.5 K/mm3 (4.0-10.0) 11/26/17 06:50 RBC 2.93 M/mm3 (4.00-5.60) L 11/26/17 06:50 Hgb 9.3 GM/dL (11.7-16.9) L 11/26/17 06:50 Hct 27.6 % (35.4-49) L 11/26/17 06:50 MCV 94.4 fl (80-96) 11/26/17 06:50 MCHC 33.5 g/dl (32.0-35.9) 11/26/17 06:50 RDW 14.1 % (11.9-15.9) 11/26/17 06:50 Plt Count 215 K/MM3 (134-434) D 11/26/17 06:50 MPV 8.8 fl (7.5-11.1) 11/26/17 06:50 CMP Sodium 140 mmol/L (136-145) 11/26/17 06:50 Potassium 4.0 mmol/L (3.5-5.1) 11/26/17 06:50 Chloride 102 mmol/L (98-107) 11/26/17 06:50 Carbon Dioxide 31 mmol/L (21-32) 11/26/17 06:50 Anion Gap 7 (8-16) L 11/26/17 06:50 BUN 15 mg/dL (7-18) 11/26/17 06:50 Creatinine 0.7 mg/dL (0.7-1.3) 11/26/17 06:50 Creat Clearance w eGFR > 60 (>60) 11/26/17 06:50 Random Glucose 103 mg/dL (74-106) 11/26/17 06:50 Calcium 7.8 mg/dL (8.5-10.1) L 11/26/17 06:50 Total Bilirubin 0.7 mg/dL (0.2-1.0) 11/26/17 06:50 AST 29 U/L (15-37) 11/26/17 06:50 ALT 27 U/L (12-78) 11/26/17 06:50 Alkaline Phosphatase 63 U/L (45-117) 11/26/17 06:50 Total Protein 5.2 g/dl (6.4-8.2) L 11/26/17 06:50 Albumin 2.5 g/dl (3.4-5.0) L 11/26/17 06:50 Assessment: This is a 77 year old male with PMHx of lumbar stenosis, a.fib, HCV who was admitted for elective removal of hardware L2-S1/revision L2-S1 laminectomies/T6-L1 SPO/T6-pelvis PISF. Plan: 1) S/p removal of hardware L2-S1; revision laminectomies L2-S1; T6-L1 osteotomies; T6-pelvis posterior instrumented spinal fusion - POD#7 - Still with dried blood on the upper dressing - Oxycodone 20mg po q4h - Incentive spirometry - Appreciate surgery consult 2) A.fib - Continue Coumadin, INR therapeutic 3) HCV - Outpatient follow-up 4) F/E/N: - Soft, diabetic diet - Monitor electrolytes 5) Prophylaxis: - TEDs only - PT 6) Dispo: - Requires continued inpatient care CODE STATUS: FULL CODE Visit type - Emergency Visit Emergency Visit: Yes ED Registration Date: 11/19/17 Care time: The patient presented to the Emergency Department on the above date and was hospitalized for further evaluation of their emergent condition. - New Patient This patient is new to me today: No - Critical Care Critical Care patient: No
[2017-11-26 09:57] LABS: ANISOCYTOSIS 1+; PLATELET ESTIMATE NORMAL
[2017-11-26] MEDS: ENOXAPARIN NA (PORCINE) 40 MG/0.4 ML DISP.SYRIN SQ SCH (10:19)
[2017-11-26] MEDS: POLYETHYLENE GLYCOL 3350 119 GM BTL PO SCH (10:20)
--- NOTE | 2017-11-26 13:39 | PN ---
Progress Note (short form) - Note Progress Note: 77M s/p removal of hardware L2-S1; revision laminectomies L2-S1; T6-L1 osteotomies; T6-pelvis posterior instrumented spinal fusion POD #7. Pain well controlled. No acute events overnight. Pt. denies overnight history of headaches, chest pain, shortness of breath, nausea, vomiting, chills, & sweats. (+) Voiding; (+) Flatus; (+) BM. Pt. walked in hallway. All labs & vitals reviewed. PE: AAO x 3, NAD. Spine: Wound dry. B/L LE sensorimotor exam at baseline. 77M doing well s/p removal of hardware L2-S1; revision laminectomies L2-S1; T6- L1 osteotomies; T6-pelvis posterior instrumented spinal fusion POD #7. -Pain control: per anaesthesia team. -DVT PPx. -Incentive spirometry. -PT/OT/Rehab, OOB. -WBAT B/L LE. -B/L LE NV checks. -Care per medical hospitalist team. -Discharge planning: home today or tomorrow; f/u [facility] [place] office 12/06/2017; call for appointment. -Will follow. Say Tariq MD.
[2017-11-26] MEDS ORDERED: WARFARIN NA 2.5 MG TABLET (FP) PO SCH (14:16)
[2017-11-26] MEDS ORDERED: WARFARIN NA 5 MG TABLET (UD) PO SCH (14:38)
--- NOTE | 2017-11-26 14:59 | DS ---
Physical Examination Vital Signs: Vital Signs Temperature 97.8 F 11/26/17 06:00 Pulse Rate 102 H 11/26/17 06:00 Respiratory Rate 20 11/26/17 06:00 Blood Pressure 138/92 11/26/17 06:00 O2 Sat by Pulse Oximetry (%) 99 11/25/17 22:30 Labs: CBC, BMP 11/26/17 06:50 11/26/17 06:50 Discharge Summary Reason For Visit: POSTURAL KYPHOSIS, THORACOLUMBAR REGION Current Active Problems Hematuria (Acute) Hospital Course: Discussed with Dr. Tariq who recommended discharging the patient on Coumadin 5mg po qhs and he will follow INR in the office next week. Appointment made for the patient on 12/[address] Tariq Condition: Improved - Instructions Diet, Activity, Other Instructions: Please return to the ED with new, persistent, or worsening symptoms. Please follow-up with providers as indicated. Follow-up with your cardiology within 2-3 days to have your INR checked. Continue taking your Coumadin, as discussed, at 5mg by mouth every night. Referrals: Say Tariq MD [Staff Physician] - (Please follow-up with Dr. Tariq for a pos-op visit and to have your INR checked on 12/06/17 at 8:00am. ) Say Francis MD [Staff Physician] - 1 Week Juan C Quiros MD [Staff Physician] - 1 Week Disposition: VNS/HOME HEALTH CARE - Home Medications Comprehensive Discharge Medication List: Ambulatory Orders Losartan Potassium [Cozaar] 100 mg PO HS 02/12/17 Metoprolol Tartrate [Lopressor -] 50 mg PO HS 11/02/17 Albuterol 0.083% Nebulizer Karlene [Ventolin 0.083% Nebulizer Soln -] 1 amp NEB Q4H PRN #120 amp 11/26/17 Docusate Sodium [Colace -] 100 mg PO TID #90 capsule 11/26/17 Oxycodone HCl 20 mg PO Q4H #30 tablet MDD 120mg 11/26/17 Polyethylene Glycol 3350 [Miralax 119 gm Btl -] 17 gm PO DAILY #1 bottle Sennosides [Senna -] 2 tab PO HS PRN #60 tablet 11/26/17 Warfarin Na [Coumadin -] 5 mg PO HS #30 tab 11/26/17 - Discharge Referral Referred to [facility] No
[2017-11-26 15:12] VITALS: TEMP 98.6
[2017-11-26 15:18] VITALS: BP 138/87; PULSE 113
== END 2017-11-26 18:59 | disposition home health service (06) | DRG 456 ==
LOC: JSAMEDAYSX 06:09 → JICU 17:24 → J8W 11-20 20:09
PROVIDERS: ADMIT Orthopaedic Surgery Orthopaedic Surgery of the Spine; ATTEND Registered Nurse
PROC: 0WP Anatomical Regions, General, Removal (ICD-10-PCS; 2017-11-19)
PROC: 0QB00ZZ Excision of Lumbar Vertebra, Open Approach (ICD-10-PCS; principal; 2017-11-19 08:00)
PROC: 0RGA071 Fusion of Thoracolumbar Vertebral Joint with Autologous Tissue Substitute, Posterior Approach, Posterior Column, Open Approach (ICD-10-PCS; 2017-11-19 08:00)
DX: M40.05 Postural kyphosis, thoracolumbar region (principal); G92 Toxic encephalopathy; I48.91 Unspecified atrial fibrillation; I10 Essential (primary) hypertension; R41.0 Disorientation, unspecified; M48.061 Spinal stenosis, lumbar region without neurogenic claudication; D64.9 Anemia, unspecified; Z87.891 Personal history of nicotine dependence; R31.0 Gross hematuria
CPT/HCPCS: 36415; 70450-TC; 76000-TC-FY; 80048; 80053; 81003; 82607; 82962; 83735; 84100; 84443; 85025; 85027; 85610; 86850; 86900; 86901; 88300-TC; 94640; 94760; 97116-GP; 97162-GP; J1644

== ENCOUNTER 2018-09-09 06:13 | Inpatient (IN) | payer OTHER ==
[2018-09-06 19:06] VITALS: BMI 28.6
[2018-09-09] MEDS ORDERED: HEPARIN NA (PORCINE) 5,000 UNITS/ML 1ML VIAL ONE (07:10)
[2018-09-09] MEDS ORDERED: THROMBIN (BOVINE) 5,000 UNIT VIAL TP ONE ×2 (07:11→10:25)
[2018-09-09] MEDS ORDERED: BENZOIN TINCTURE SWABSTICK TP ONE (07:11)
[2018-09-09] MEDS ORDERED: PROPOFOL 20 ML ONE ×13 (07:13→08:32)
[2018-09-09] MEDS ORDERED: fentaNYL CITRATE 250 MCG/5 ML VIAL ONE (07:13)
[2018-09-09] MEDS ORDERED: SUCCINYLCHOLINE CHLORIDE 200 MG/10 ML VIAL ONE (07:13)
[2018-09-09] MEDS ORDERED: TRANEXAMIC ACID 1000 MG/10 ML VIAL ONE (07:14)
[2018-09-09] MEDS ORDERED: DEXAMETHASONE SOD PHOSPHATE 4 MG/1 ML VIAL ONE (07:14)
[2018-09-09] MEDS ORDERED: LIDOCAINE HCL/PF 2% SDV 5ML VIAL ONE (07:14)
[2018-09-09] MEDS ORDERED: VANCOMYCIN 1,000 MG VIAL (RESTRICTED TO ID ONLY) ONE (07:14)
[2018-09-09] MEDS ORDERED: ceFAZolin SODIUM 1 GM VIAL ONE ×2 (07:14→17:15)
[2018-09-09] MEDS ORDERED: ONDANSETRON 4 MG/2 ML VIAL ONE (07:14)
[2018-09-09] MEDS ORDERED: VANCOMYCIN 1,000 MG VIAL (RESTRICTED TO ID ONLY) IVPB ONE (08:15)
[2018-09-09] MEDS ORDERED: MIDAZOLAM HCL 2 MG/2 ML SINGLE DOSE VIAL ONE (08:42)
[2018-09-09] MEDS ORDERED: EPINEPHrine 1:10,000 (P-F SYR) 1 MG/10 ML DISP.SYRIN ONE (08:43)
[2018-09-09] MEDS ORDERED: ATROPINE SULFATE 1 MG/10 ML DISP.SYRIN ONE (08:43)
[2018-09-09] MEDS ORDERED: ePHEDrine SULFATE 50 MG/1 ML AMPULE ONE ×3 (08:43)
[2018-09-09 09:01] LABS: INR 1.08 (0.83-1.09); PROTHROMBIN TIME (PATIENT) 12.8 SEC (9.7-13.0)
[2018-09-09] MEDS ORDERED: ceFAZolin SODIUM 1 GM VIAL IVPB ONE (09:40)
[2018-09-09] MEDS ORDERED: ROCURONIUM BROMIDE 50 MG/5 ML VIAL ONE (10:12)
[2018-09-09] MEDS ORDERED: GELATIN, ABSORBABLE 100 EACH SPONGE TP ONE ×2 (10:26)
[2018-09-09] MEDS ORDERED: GLYCOPYRROLATE 0.2 MG/1 ML VIAL ONE (10:47)
[2018-09-09] MEDS ORDERED: NEOSTIGMINE METHYLSULFATE 0.5 MG/1 ML - 10 ML MDV ONE (10:47)
--- NOTE | 2018-09-09 11:35 | PN ---
Progress Note (short form) - Note Progress Note: 78M s/p removal of pelvic fixation hardware; revision laminectomy L5-S1; revision L5-pelvis spinal fusion POD #0. -Pain control: per anaesthesia team. -DVT PPx: - Mechanical ONLY: NIKITA's, SCD's. - Hold chemical DVT PPx. until 72 hrs post-op. -Incentive spirometry. -PT/OT/Rehab, OOB. -WBAT B/L LE. -q4h B/L LE NV checks. -Post-op antibiotics x 2 doses. -NPO until flatus. -f/u AM labs. -d/c lee catheter when ambulating. -Care per medical hospitalist team. -Discharge planning: f/u [facility] [place] Office within 7-10 days of hospital discharge; call for appointment . -Will follow. Say Tariq MD.
[2018-09-09] MEDS ORDERED: ALBUTEROL SO4 0.083% IH SOL 2.5 MG/3 ML VIAL.NEB. NEB PRN (11:37)
[2018-09-09] MEDS ORDERED: ONDANSETRON 4 MG/2 ML VIAL IVPUSH PRN (11:37)
--- NOTE | 2018-09-09 11:45 | OP ---
Operative Note - Note: Operative Date: 09/09/18 Pre-Operative Diagnosis: 1. Hardware bursitis. 2. Symptomatic hardware Operation: 1. Removal of pelvic fixation hardware. 2. Revision laminectomy L5- S1. 3. Revision L5-pelvis spinal fusion. 4. Bone allograft. 5. Intraoperative neural monitoring. 6. Biplanar fluoroscopy Post-Operative Diagnosis: Same as Pre-op Surgeon: Say Tariq Identification Officer: Benjamin Tariq Anesthesiologist/PSYCH COORDINATOR: Sarwat Greene Anesthesia: General Specimens Removed: Pelvic hardware fixation Estimated Blood Loss (mls): 50 Fluid Volume Replaced (mls): 1,000 Operative Report Dictated: Yes
[2018-09-09] MEDS: ACETAMINOPHEN 1000 MG/100 ML VIAL (NON FORMULARY) IVPB SCH ×2 (12:05→21:54)
[2018-09-09] MEDS ORDERED: oxyCODONE HCL 5 MG TABLET PO PRN (12:35)
[2018-09-09] MEDS ORDERED: NALOXONE HCL 0.4 MG/ML VIAL ONE (18:19)
[2018-09-09] MEDS: oxyCODONE HCL 5 MG TABLET PO PRN (18:48)
[2018-09-09] MEDS: CEFAZOLIN 1 GM/D5W 1 GM/50 ML BAG IVPB SCH (20:11)
--- NOTE | 2018-09-09 21:10 | OP ---
DATE OF OPERATION: 09/09/2018 SURGEON: Say Tariq MD MINE SURVEYOR: Benjamin Tariq MD PREOPERATIVE DIAGNOSES: Painful hardware; bursitis, lumbosacral spine; possible pseudoarthrosis and revision stenosis, L5-S1. POSTOPERATIVE DIAGNOSES: Painful hardware, bursitis, and recurrent stenosis, solid fusion encountered. OPERATION PERFORMED: 1. Removal of distal sacropelvic screws and approximately 2 inches of distal qiana of the original construct. 2. Inspection of the fusion mass. 3. Revision laminectomy, L5-S1. 4. Posterolateral arthrodesis, L5-S1. ANESTHESIA: General. ANTIBIOTICS GIVEN: Kefzol 2 g, vancomycin 1 g, TXA utilized. NEUROMONITORING: Utilized. With the patient in the prone position, the lumbar spine was prepped and draped in the routine manner with Betadine scrub solution, wiped off with alcohol, DuraPrep applied. Imaging was available for intraoperative evaluation, revealed case was that of severe painful hardware in the with mild residual kyphosis and scoliosis. The tissues were opened, skin and subcutaneous tissue down to the fascia. The fascia was opened. The hardware was dissected out appropriately, exposing the distal hardware completely. It was found that the rods appeared to have been pulled out posteriorly and were proud posteriorly, the left worse than the right. Prior to that, the posterior seroma region was resected. The entire posterior lamina was resected to free all the nerve roots at L4, L5, S1 level. The rods were cut distal to the L5 screws, and the appropriate screws, that is the pelvic as well as the sacral screws, were removed accordingly. The fusion mass was inspected. It appeared to be completely solid, but because of the flimsy nature of the lumbosacral junction, we elected to lie down bone graft at this area; 5 mL of cancellous chips packed into the intertransverse plane at L5-S1, both left- and right-hand side. The tissues were thoroughly lavaged. The wound was closed in 4 layers, muscle 1 Vicryl, fascia 1 Vicryl, subcutaneous 1 and 2-0 Vicryl, skin with 3-0 Monocryl and Steri-Strips. This categorized as a complex wound closure of about 10 cm. Say Tariq MD [id number]
[2018-09-09] MEDS: METOPROLOL TARTRATE 25 MG TABLET (FP) PO SCH (21:51)
[2018-09-09] MEDS: LOSARTAN POTASSIUM 50 MG TABLET (FP) PO SCH (21:52)
[2018-09-10] MEDS: oxyCODONE HCL 5 MG TABLET PO PRN ×3 (03:55→21:20)
[2018-09-10] MEDS: ACETAMINOPHEN 1000 MG/100 ML VIAL (NON FORMULARY) IVPB SCH ×2 (04:18→07:49)
--- NOTE | 2018-09-10 14:08 | PN ---
Progress Note (short form) - Note Progress Note: Anesthesia POD#1 S/P Removal of l5-s1 Hardware under GA VSS,no N/V,pain is unbearable but refuse take oxycodone However,ask the patient to take it and see. Patient agreed. Lynnette Montoya MD.
--- NOTE | 2018-09-10 16:20 | PATH ---
Surgical Pathology Report Patient Name: MELISA URIAS Med. Rec. #: [id number] /Age/Gender: 1940 (Age: 78) / M Account: [id number] Location: [facility] MED/SURG Taken: 09/09/2018 Received: 09/09/2018 Reported: 09/10/2018 Physicians: Say Tariq M.D. Specimen(s) Received REMOVAL OF HARDWARE Clinical History History of thoracolumbar fusion Final Diagnosis L5-S1, HARDWARE, REMOVAL: SURGICAL HARDWARE. MACROSCOPIC DIAGNOSIS. Electronically Signed Celi Taylor M.D. Gross Description Received fresh labeled "removed hardware," are 2 portions of a padgett metallic qiana measuring 2.8 and 3.2 cm in length. Also received within the same container are 4 padgett metallic screws ranging from 0.5-10.5 cm in length. No soft tissue is present. No sections are submitted, gross only. /09/09/2018 saudi/09/09/2018
--- NOTE | 2018-09-10 16:57 | PN ---
Progress Note (short form) - Note Progress Note: 78M s/p removal of pelvic fixation hardware; revision laminectomy L5-S1; revision L5-pelvis spinal fusion POD #1. Pain well controlled. No acute events overnight. Pt. denies overnight history of headaches, chest pain, shortness of breath, nausea, vomiting, chills, & sweats. (+) Lee; (-) Flatus; (-) BM. Walked in room. All labs and vitals reviewed. PE: AAO x 3, NAD. L-Spine: Incision, dressing C/D/I. B/L LE M: L2-S1 intact. B/L LE S: L2-S1 2/2. A/P: 78M s/p removal of pelvic fixation hardware; revision laminectomy L5-S1; revision L5-pelvis spinal fusion POD #1. -Pain control: per anaesthesia team. -DVT PPx: - Mechanical ONLY: NIKITA's, SCD's. - Hold chemical DVT PPx. until 72 hrs post-op. -Incentive spirometry. -PT/OT/Rehab, OOB. -WBAT B/L LE. -q4h B/L LE NV checks. -NPO until flatus. -f/u AM labs. -d/c lee catheter when ambulating. -Care per medical hospitalist team. -Discharge planning: f/u [facility] [place] Office within 7-10 days of hospital discharge; call for appointment . -Will follow. Benjamin Tariq MD (Orthopaedic Surgery).
--- NOTE | 2018-09-10 17:47 | PN ---
Physical Exam: SUBJECTIVE: Patient seen and examined. He is complaining of back pain but states that it is much better now. OBJECTIVE: Vital Signs Period Temp Pulse Resp BP Sys/De La Vega Pulse Ox Last 24 Hr 98.1 F-98.8 F 69-97 14-20 106-168/55-97 96-100 GENERAL: The patient is awake, alert, and fully oriented, in no acute distress. HEAD: Normal with no signs of trauma. EYES: extraocular movements intact, conjunctiva clear. ENT: Oropharynx clear without exudates, moist mucous membranes. NECK: Trachea midline, full range of motion, supple. LUNGS: Breath sounds equal, clear to auscultation bilaterally, no wheezes, no crackles, no accessory muscle use. HEART: Irregular rate and rhythm, S1, S2 without murmur, rub or gallop. ABDOMEN: Soft, nontender, nondistended, no guarding. EXTREMITIES: 2+ pulses, warm, no edema. NEUROLOGICAL: Normal speech, gait not observed. PSYCH: Normal mood, normal affect. SKIN: Warm, dry, normal turgor, no rashes, scar along spine, healed, dressing applied in lower back. Active Medications Generic Name Dose Route Start Last Admin Trade Name Freq PRN Reason Stop Dose Admin Albuterol Sulfate 1 amp 09/09/18 11:37 Ventolin 0.083% Nebulizer Soln - NEB Q4H PRN SHORT OF BREATH/WHEEZING Lactated Ringer's 1,000 mls @ 125 mls/hr 09/09/18 11:45 Lactated Ringers Solution IV ASDIR VALERIANO Losartan Potassium 100 mg 09/09/18 22:00 09/09/18 21:52 Cozaar - PO 100 mg HS VALERIANO Administration Metoprolol Tartrate 50 mg 09/09/18 22:00 09/09/18 21:51 Lopressor - PO 50 mg HS VALERIANO Administration Ondansetron HCl 4 mg 09/09/18 11:37 Zofran Injection IVPUSH Q6H PRN NAUSEA AND/OR VOMITING Oxycodone HCl 20 mg 09/09/18 11:37 09/10/18 13:54 Roxicodone - PO 20 mg Q4H PRN Administration PAIN LEVEL 7 - 10 Oxycodone HCl 10 mg 09/09/18 12:35 Roxicodone - PO Q4H PRN PAIN LEVEL 6-10 ASSESSMENT/PLAN: This is a 77 year old male with PMHx of HTN, lumbar stenosis, a.fib, HCV who was admitted for elective removal of pelvic fixation hardware; revision laminectomy L5-S1; revision L5-pelvis spinal fusion. Removal of pelvic fixation hardware; revision laminectomy L5-S1; revision L5- pelvis spinal fusion -POD #1 -dressing applied -Oxycodone 20mg po q4h and 10 mg Q4h -Incentive spirometry, Albuterol INH -LR 125 ml/hr -no AC -ambulation OOB -lee will be removed today -passed flatus, started on diet HTN: -controlled -continue Lopressor 50 HS and Losartan 100 mh HS - A.fib -hold Coumadin, DMII: -not on meds -last HgA1c 6.2 HCV - Outpatient follow-up CAD; cath in 2014 DVT PPX: -mechanical only as per surgery Dispo: discharge tomorrow Problem List - Problems (1) Hypertension Code(s): I10 - ESSENTIAL (PRIMARY) HYPERTENSION (2) History of back surgery Code(s): Z98.890 - OTHER SPECIFIED POSTPROCEDURAL STATES (3) A-fib Code(s): I48.91 - UNSPECIFIED ATRIAL FIBRILLATION (4) Diabetes Code(s): E11.9 - TYPE 2 DIABETES MELLITUS WITHOUT COMPLICATIONS Visit type - Emergency Visit Emergency Visit: Yes ED Registration Date: 09/09/18 Care time: The patient presented to the Emergency Department on the above date and was hospitalized for further evaluation of their emergent condition. - New Patient This patient is new to me today: Yes Date on this admission: 09/10/18 - Critical Care Critical Care patient: No - Discharge Referral Referred to [facility] No
--- NOTE | 2018-09-10 17:48 | PN ---
Teaching Attending Note Name of Resident: Yajaira Espinosa ATTENDING PHYSICIAN STATEMENT I saw and evaluated the patient. I reviewed the resident's note and discussed the case with the resident. I agree with the resident's findings and plan as documented with exceptions below. SUBJECTIVE: Patient seen and examined. Denies any back pain currently, feeling well, tolerating diet well. OBJECTIVE: Vital Signs Period Temp Pulse Resp BP Sys/De La Vega Pulse Ox Last 24 Hr 98.1 F-98.8 F 69-97 14-20 106-168/55-97 96-100 Intake & Output 09/07/18 09/08/18 09/09/18 09/10/18 23:59 23:59 23:59 23:59 Intake Total 2074 60 Output Total 1150 Balance 924 60 General: sitting in bed in no acute distress Chest: CTAB, no rales or wheezing Musculoskeletal: back dressing clean, LE power 5/5, sensation intact and symmetric bilaterally Abdomen;Soft, NT, positive bowel sounds Extremities: no edema Home Medications Medication Instructions Recorded Losartan Potassium [Cozaar] 100 mg PO HS 02/12/17 Metoprolol Tartrate [Lopressor -] 50 mg PO HS 11/02/17 Albuterol 0.083% Nebulizer Karlene 1 amp NEB Q4H PRN #120 amp 11/26/17 [Ventolin 0.083% Nebulizer Soln -] Oxycodone HCl 20 mg PO Q4H PRN #30 tablet MDD 11/26/17 120mg Warfarin Na [Coumadin -] 5 mg PO HS #30 tab 11/26/17 Aspirin [Aspirin EC] 81 mg PO DAILY 09/06/18 Active Medications Albuterol Sulfate (Ventolin 0.083% Nebulizer Soln -) 1 amp NEB Q4H PRN PRN Reason: SHORT OF BREATH/WHEEZING Lactated Ringer's (Lactated Ringers Solution) 1,000 mls @ 125 mls/hr IV ASDIR VALERIANO Losartan Potassium (Cozaar -) 100 mg PO HS [facility] Last Admin: 09/09/18 21:52 Dose: 100 mg Metoprolol Tartrate (Lopressor -) 50 mg PO HS VALERIANO Last Admin: 09/09/18 21:51 Dose: 50 mg Ondansetron HCl (Zofran Injection) 4 mg IVPUSH Q6H PRN PRN Reason: NAUSEA AND/OR VOMITING Oxycodone HCl (Roxicodone -) 20 mg PO Q4H PRN PRN Reason: PAIN LEVEL 7 - 10 Last Admin: 09/10/18 13:54 Dose: 20 mg Oxycodone HCl (Roxicodone -) 10 mg PO Q4H PRN PRN Reason: PAIN LEVEL 6-10 ASSESSMENT AND PLAN: 78 yom with PMHx of Afib on coumadin, HTN, Chronic back with spinal surgery, s/ p removal of pelvic fixation hardware; revision laminectomy L5-S1; revision L5- pelvis spinal fusion POD #1. -s/p removal of pelvic fixation hardware; revision laminectomy L5-S1; revision L5-pelvis spinal fusion POD #1. -Atrial fibrillation on coumadin -HTN Plan: DVTPPX, PO per Spine surgery. Continue metoprolol/losartan Incentive spirometry. Pain control oxycodone, add bowel regimen. Coumadin on hold, resume per surgery. Outpatient labs reviewed. Repeat in AM. Dispo possible dc in 24 hours if no concerns as discussed with Dr. Tariq.
[2018-09-10] MEDS ORDERED: POLYETHYLENE GLYCOL 3350 119 GM BTL PO PRN (18:13)
[2018-09-10] MEDS: LACTATED RINGERS SOLUTION 1,000 ML IV SCH (20:56)
[2018-09-10] MEDS: LOSARTAN POTASSIUM 50 MG TABLET (FP) PO SCH (21:15)
[2018-09-10] MEDS: METOPROLOL TARTRATE 25 MG TABLET (FP) PO SCH (21:16)
[2018-09-10] MEDS: DOCUSATE NA 100 MG/10 ML UNIT-DOSE CUPS PO SCH (21:16)
[2018-09-10] MEDS ORDERED: SENNOSIDES 8.6MG TABLET (FP) PO SCH (22:00)
[2018-09-11 06:35] LABS: BASO % 0.8 % (0-2.0); EOS % 1.6 % (0-4.5); HEMATOCRIT 39.9 % (35.4-49); HEMOGLOBIN 13.5 GM/dL (11.7-16.9); LYMPH % 9.7 % (8-40); MCH 31.6 pg (25.7-33.7); MCHC 33.8 g/dl (32.0-35.9); MEAN CELL VOLUME 93.4 fl (80-96); MONO % 13.9 % (3.8-10.2); PLATELET COUNT 127 K/MM3 (134-434); RBC 4.28 M/mm3 (4.00-5.60); RDW 14.8 % (11.9-15.9); WHITE BLOOD COUNT 10.5 K/mm3 (4.0-10.0)
[2018-09-11 07:12] LABS: ALBUMIN 3.2 g/dl (3.4-5.0); ALK PHOS 88 U/L (45-117); ANION GAP 6 MMOL/L (8-16); BLOOD UREA NITROGEN 11 mg/dL (7-18); CALCIUM 8.7 mg/dL (8.5-10.1); CHLORIDE 103 mmol/L (98-107); CO2 29 mmol/L (21-32); CREATININE 0.9 mg/dL (0.55-1.3); GLUCOSE,RANDOM 89 mg/dL (74-106); POTASSIUM 4.1 mmol/L (3.5-5.1); SGOT/AST 29 U/L (15-37); SGPT/ALT 21 U/L (13-61); SODIUM 138 mmol/L (136-145); TOT PROT 5.9 g/dl (6.4-8.2)
--- NOTE | 2018-09-11 09:09 | PN ---
Teaching Attending Note Name of Resident: Yajaira Espinosa ATTENDING PHYSICIAN STATEMENT I saw and evaluated the patient. I reviewed the resident's note and discussed the case with the resident. I agree with the resident's findings and plan as documented. SUBJECTIVE: OBJECTIVE: Vital Signs Temperature 98.2 F 09/11/18 06:15 Pulse Rate 89 09/11/18 06:15 Respiratory Rate 20 09/11/18 06:15 Blood Pressure 140/79 09/11/18 06:15 O2 Sat by Pulse Oximetry (%) 96 09/10/18 21:00 CBC, BMP 09/11/18 05:30 09/11/18 05:30 Active Medications Albuterol Sulfate (Ventolin 0.083% Nebulizer Soln -) 1 amp NEB Q4H PRN PRN Reason: SHORT OF BREATH/WHEEZING Docusate Sodium (Colace Liquid -) 100 mg PO BID [facility] Last Admin: 09/10/18 21:16 Dose: 100 mg Lactated Ringer's (Lactated Ringers Solution) 1,000 mls @ 125 mls/hr IV ASDIR [facility] Last Admin: 09/10/18 20:56 Dose: Not Given Losartan Potassium (Cozaar -) 100 mg PO [facility] Last Admin: 09/10/18 21:15 Dose: 100 mg Metoprolol Tartrate (Lopressor -) 50 mg PO [facility] Last Admin: 09/10/18 21:16 Dose: 50 mg Ondansetron HCl (Zofran Injection) 4 mg IVPUSH Q6H PRN PRN Reason: NAUSEA AND/OR VOMITING Oxycodone HCl (Roxicodone -) 20 mg PO Q4H PRN PRN Reason: PAIN LEVEL 7 - 10 Last Admin: 09/10/18 21:20 Dose: 20 mg Oxycodone HCl (Roxicodone -) 10 mg PO Q4H PRN PRN Reason: PAIN LEVEL 6-10 Polyethylene Glycol (Miralax (For Daily Use) -) 17 gm PO DAILY PRN PRN Reason: CONSTIPATION Senna (Senna -) 1 tab PO [facility] Last Admin: 09/10/18 21:16 Dose: 1 tab ASSESSMENT AND PLAN:78 yom with PMHx of Afib on coumadin, HTN, Chronic back with spinal surgery, s/p removal of pelvic fixation hardware; revision laminectomy L5-S1; revision L5-pelvis spinal fusion POD 2 s/p removal of pelvic fixation hardware; revision laminectomy L5-S1; revision L5 -pelvis spinal fusion : cont pain medication resume Po meds can be Dc Home on once tolertaes PO. Atrial fibrillation rate controlled resume coumadin after 72 hrs of surgery on coumadin HTN; well control resume all home meds
[2018-09-11] MEDS ORDERED: PT OWN MED DRAWER 7, Y5N ONE (09:53)
[2018-09-11] MEDS: DOCUSATE NA 100 MG/10 ML UNIT-DOSE CUPS PO SCH (09:55)
--- NOTE | 2018-09-11 11:59 | DS ---
Physical Examination Vital Signs: Vital Signs Temperature 98.1 F 09/11/18 08:10 Pulse Rate 90 09/11/18 08:10 Respiratory Rate 18 09/11/18 08:10 Blood Pressure 127/65 09/11/18 08:10 O2 Sat by Pulse Oximetry (%) 96 09/10/18 21:00 Constitutional: Yes: Well Nourished, No Distress Eyes: Yes: Conjunctiva Clear, EOM Intact HENT: Yes: Atraumatic, Normocephalic Neck: Yes: Supple, Trachea Midline Cardiovascular: Yes: Pulse Irregular, S1, S2. No: JVD, Gallop, Murmur Respiratory: Yes: CTA Bilaterally Gastrointestinal: Yes: Normal Bowel Sounds, Soft Musculoskeletal: Yes: Other (s/p surgery Post Op day 2) Edema: No Peripheral Pulses: Left Doralis Pedis: 1+, Right Dorsalis Pedis: 1+ Wound/Incision: Yes: Well Approximated, Sutures Intact Neurological: Yes: Alert, Oriented ...Motor Strength: WNL, LUE, LLE, RUE, RLE Labs: CBC, BMP 09/11/18 05:30 09/11/18 05:30 Discharge Summary Reason For Visit: FUSION OF SPINE, THORACOLUMBAR REGION Current Active Problems History of back surgery (Acute) Hypertension (Acute) Procedures: Principal: s/p removal of pelvic fixation hardware; revision laminectomy L5-S1; revision L5-pelvis spinal fusion . Hospital Course: 78 yom with PMHx of Afib on coumadin, HTN, Chronic back with spinal surgery, s/ p removal of pelvic fixation hardware; revision laminectomy L5-S1; revision L5- pelvis spinal fusion POD 2, patient feels at base line able to ambulate flatus but no BM , patient has all meds at home F/U with a cardiology at [facility] , patient isadvised to resume ASA and Coumadin 3rd Post Op day. Condition: Stable - Instructions Referrals: Say Tariq MD [Staff Physician] - 1 Week Disposition: HOME - Home Medications Comprehensive Discharge Medication List: Ambulatory Orders Losartan Potassium [Cozaar] 100 mg PO HS 02/12/17 Metoprolol Tartrate [Lopressor -] 50 mg PO HS 11/02/17 Albuterol 0.083% Nebulizer Karlene [Ventolin 0.083% Nebulizer Soln -] 1 amp NEB Q4H PRN #120 amp 11/26/17 Oxycodone HCl 20 mg PO Q4H PRN #30 tablet MDD 120mg 11/26/17 Aspirin [Aspirin EC] 81 mg PO DAILY #30 tab 09/11/18 Polyethylene Glycol 3350 [Miralax 119 gm Btl -] 17 gm PO DAILY PRN #30 bottle Sennosides [Senna -] 1 tab PO HS tablet 09/11/18 Warfarin Na [Coumadin -] 5 mg PO HS #30 tab 09/11/18
[2018-09-11] MEDS: LACTATED RINGERS SOLUTION 1,000 ML IV SCH (13:34)
--- NOTE | 2018-09-11 13:58 | PN ---
Physical Exam: SUBJECTIVE: Patient seen and examined, feeling good, no complaints. OBJECTIVE: Vital Signs Period Temp Pulse Resp BP Sys/De La Vega Pulse Ox Last 24 Hr 98.1 F-98.8 F 71-97 18-20 106-168/59-95 96 ENERAL: The patient is awake, alert, and fully oriented, in no acute distress. HEAD: Normal with no signs of trauma. EYES: extraocular movements intact, conjunctiva clear. ENT: Oropharynx clear without exudates, moist mucous membranes. NECK: Trachea midline, full range of motion, supple. LUNGS: Breath sounds equal, clear to auscultation bilaterally, no wheezes, no crackles, no accessory muscle use. HEART: Irregular rate and rhythm, S1, S2 without murmur, rub or gallop. ABDOMEN: Soft, nontender, nondistended, no guarding. EXTREMITIES: 2+ pulses, warm, no edema. NEUROLOGICAL: Normal speech, gait not observed. PSYCH: Normal mood, normal affect. SKIN: Warm, dry, normal turgor, no rashes, scar along spine, healed, dressing applied in lower back. Laboratory Results - last 24 hr 09/11/18 09/11/18 05:30 05:30 WBC 10.5 H RBC 4.28 Hgb 13.5 Hct 39.9 D MCV 93.4 MCH 31.6 MCHC 33.8 RDW 14.8 Plt Count 127 L MPV 10.0 Absolute Neuts (auto) 7.8 Neutrophils % 74.0 Lymphocytes % 9.7 D Monocytes % 13.9 H Eosinophils % 1.6 Basophils % 0.8 Nucleated RBC % 0 Sodium 138 Potassium 4.1 Chloride 103 Carbon Dioxide 29 Anion Gap 6 L BUN 11 Creatinine 0.9 Creat Clearance w eGFR 81.19 Random Glucose 89 Calcium 8.7 Total Bilirubin 1.0 AST 29 ALT 21 Alkaline Phosphatase 88 Total Protein 5.9 L Albumin 3.2 L Active Medications Generic Name Dose Route Start Last Admin Trade Name Freq PRN Reason Stop Dose Admin Albuterol Sulfate 1 amp 09/09/18 11:37 Ventolin 0.083% Nebulizer Soln - NEB Q4H PRN SHORT OF BREATH/WHEEZING Docusate Sodium 100 mg 09/10/18 22:00 09/11/18 09:55 Colace Liquid - PO 100 mg BID VALERIANO Administration Lactated Ringer's 1,000 mls @ 125 mls/hr 09/09/18 11:45 09/11/18 13:34 Lactated Ringers Solution IV Not Given ASDIR VALERIANO Losartan Potassium 100 mg 09/09/18 22:00 09/10/18 21:15 Cozaar - PO 100 mg HS VALERIANO Administration Metoprolol Tartrate 50 mg 09/09/18 22:00 09/10/18 21:16 Lopressor - PO 50 mg HS VALERIANO Administration Ondansetron HCl 4 mg 09/09/18 11:37 Zofran Injection IVPUSH Q6H PRN NAUSEA AND/OR VOMITING Oxycodone HCl 20 mg 09/09/18 11:37 09/10/18 21:20 Roxicodone - PO 20 mg Q4H PRN Administration PAIN LEVEL 7 - 10 Oxycodone HCl 10 mg 09/09/18 12:35 09/11/18 13:30 Roxicodone - PO 10 mg Q4H PRN Administration PAIN LEVEL 6-10 Polyethylene Glycol 17 gm 09/10/18 18:13 Miralax (For Daily Use) - PO DAILY PRN CONSTIPATION Senna 1 tab 09/10/18 22:00 09/10/18 21:16 Senna - PO 1 tab HS VALERIANO Administration ASSESSMENT/PLAN: This is a 77 year old male with PMHx of HTN, lumbar stenosis, a.fib, HCV who was admitted for elective removal of pelvic fixation hardware; revision laminectomy L5-S1; revision L5-pelvis spinal fusion. Removal of pelvic fixation hardware; revision laminectomy L5-S1; revision L5- pelvis spinal fusion -POD #2 -dressing applied -Oxycodone 20mg po q4h and 10 mg Q4h -Incentive spirometry, Albuterol INH -LR 125 ml/hr -no AC -ambulation OOB -lee removed -passed flatus, started on diet HTN: -controlled -continue Lopressor 50 HS and Losartan 100 mh HS A.fib -hold Coumadin DMII: -not on meds -last HgA1c 6.2 HCV - Outpatient follow-up CAD; cath in 2014 DVT PPX: -mechanical only as per surgery Dispo: discharge today Problem List - Problems (1) Hypertension Code(s): I10 - ESSENTIAL (PRIMARY) HYPERTENSION (2) History of back surgery Code(s): Z98.890 - OTHER SPECIFIED POSTPROCEDURAL STATES (3) A-fib Code(s): I48.91 - UNSPECIFIED ATRIAL FIBRILLATION (4) Diabetes Code(s): E11.9 - TYPE 2 DIABETES MELLITUS WITHOUT COMPLICATIONS Visit type - Emergency Visit Emergency Visit: Yes ED Registration Date: 09/09/18 Care time: The patient presented to the Emergency Department on the above date and was hospitalized for further evaluation of their emergent condition. - New Patient This patient is new to me today: No - Critical Care Critical Care patient: No - Discharge Referral Referred to [facility] Med [facility] No
[2018-09-11 17:15] VITALS: BP 104/71; PULSE 86; TEMP 97.6
== END 2018-09-11 19:27 | disposition home or self-care (01) | DRG 460 ==
LOC: JSAMEDAYSX 06:13 → J8W 17:35
PROVIDERS: ADMIT Orthopaedic Surgery Orthopaedic Surgery of the Spine; ATTEND Internal Medicine
PROC: 0SG30K1 Fusion of Lumbosacral Joint with Nonautologous Tissue Substitute, Posterior Approach, Posterior Column, Open Approach (ICD-10-PCS; 2018-09-09)
PROC: 00JV0ZZ Inspection of Spinal Cord, Open Approach (ICD-10-PCS; 2018-09-09)
PROC: 01NB0ZZ Release Lumbar Nerve, Open Approach (ICD-10-PCS; 2018-09-09)
PROC: 4A11X4G Monitoring of Peripheral Nervous Electrical Activity, Intraoperative, External Approach (ICD-10-PCS; 2018-09-09)
PROC: B01BZZZ Fluoroscopy of Spinal Cord (ICD-10-PCS; 2018-09-09)
PROC: 0SP30AZ Removal of Interbody Fusion Device from Lumbosacral Joint, Open Approach (ICD-10-PCS; principal; 2018-09-09 08:00)
DX: T84.84XA Pain due to internal orthopedic prosthetic devices, implants and grafts, initial encounter (principal); M71.58 Other bursitis, not elsewhere classified, other site; M48.07 Spinal stenosis, lumbosacral region; Y83.8 Other surgical procedures as the cause of abnormal reaction of the patient, or of later complication, without mention of misadventure at the time of the procedure; I48.91 Unspecified atrial fibrillation; I10 Essential (primary) hypertension; M41.87 Other forms of scoliosis, lumbosacral region; Z79.01 Long term (current) use of anticoagulants
CPT/HCPCS: 36415; 71046-TC-FY; 76000-TC-FY; 80053; 85025; 85610; 86850; 86900; 86901; 88300-TC; 94760; J0131; J1644